=== PATIENT | female | born 2000 | race Caucasian/White ===

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

== ENCOUNTER 2021-06-25 14:41 | Inpatient (IN) | payer MEDICAID, SELFPAY ==
--- NOTE | ~2021-06-25 | CT_ITS ---
EXAMINATION: CT CHEST AND CT ABDOMEN AND PELVIS WITH CONTRAST. CLINICAL INFORMATION: Febrile, tachycardia, SOB. Suprapubic pain. COMPARISON: TECHNIQUE: 5 mm thin axial and reformatted 3 mm thin sagittal and coronal images of chest, abdomen pelvis were obtained following IV however mL Omnipaque 350. DLP 451 FINDINGS: Chest: The lungs are well-expanded and clear of acute pneumonic process. No pulmonary nodules, mass or groundglass density seen. The thyroid lobes are symmetrical and normal. Central trachea and the bronchi widely patent. Heart size and the great vessels are normal. There is residual thymus present in the anterior mediastinum. There is no pleural effusion, thickening or calcification. The axilla and chest wall is unremarkable except for small shotty lymph nodes in the axilla. No osseous abnormality seen involving bony thorax. Abdomen and pelvis: Visualized liver is normal size, contour and density. No focal lesion or intrahepatic ductal dilatation seen. The gallbladder is contracted but unremarkable. Visualized spleen, pancreas and bilateral adrenal glands are unremarkable. The right kidney is hypertrophied with areas of patchy hypodensity suspicious for acute pyelonephritis. The left kidney appears unremarkable. No radiopaque renal calculi seen. 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 The left pelvis and the ureter appears unremarkable. The bladder is distended. There is scattered stool and gas seen in the colon without significant distention. The small bowel loops are normal caliber. The appendix is normal caliber. There is no free air or free fluid. The abdominal wall appears unremarkable. The abdominal aorta is normal caliber. There is no abnormal size retroperitoneal lymph nodes seen. Imaging through the pelvis reveals anteverted uterus. Bone windows reveal no lytic or sclerotic process. CT/CT abdomen pelvis w con IMPRESSION: Unremarkable CT chest exam. Slightly enlarged right kidney with patchy hypodensity of the right kidney. Question pyelonephritis or nephronia. 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 Mild constipation.
[2021-06-25 16:23] VITALS: BP 108/68; PULSE 140; RESP 19; TEMP 39.3; O2SAT 99; BMI 20.9
[2021-06-25] MEDS: Acetaminophen 325 MG TABLET 1000 MG PO (16:30)
--- NOTE | 2021-06-25 16:34 | PC.NURSE ---
after triage is complete pt states also when I pee it smells really bad .
[2021-06-25 16:50] LABS: MANUAL DIFF FLAG NO
[2021-06-25 16:52] LABS: Basophils Percent Auto 0.1 % (0-2); Hematocrit 33.3 % (37.0-47.0); Hemoglobin 10.3 g/dl (12.0-16.0); Imm Gran Abs Auto 0.07 X10*3/uL (0.00-0.03); Imm Gran Pct Auto 0.5 % (0.0-0.4); Lymphocytes Absolute Auto 1.4 X10*3/uL (1.2-4.9); Lymphocytes Percent Auto 9.1 % (20-40); Mean Corpuscular HGB Conc 30.9 g/dl (31.0-35.0); Mean Corpuscular Hemoglobin 24.2 pg (27.0-33.0); Mean Corpuscular Volume 78.2 fL (80.0-98.0); Mean Platelet Volume 9.3 fL (9.4-12.3); Monocytes Absolute Auto 0.9 X10*3/uL (0.1-1.2); Monocytes Percent Auto 5.6 % (2-11); Neutrophils Absolute Auto 13.1 x10*3/uL (2.0-8.3); Neutrophils Percent Auto 84.7 % (45-73); Platelet Count 406 X10*3/uL (160-400); Red Blood Count 4.26 X10*6/uL (4.20-5.50); Red Cell Distribution Width 15.3 % (11.0-16.0); White Blood Count 15.4 X10*3/uL (4.8-10.8)
[2021-06-25 17:03] LABS: Appearance Urine CLEAR; Color Urine YELLOW; Glucose Urine UA NEG (NEG); Leukocyte Esterase Urine 1+ (NEG); Nitrite Urine POS (NEG); UACC Culture Trigger YES; Urine Blood 1+ (NEG); Urine Ketones 5 MG/DL (NEG); Urine Protein NEG (NEG-TRACE)
[2021-06-25 17:06] LABS: Anion Gap 14 (12-20); Blood Urea Nitrogen 7 mg/dL (9-16); Calcium 9.4 mg/dL (8.4-10.2); Carbon Dioxide 24 mmol/L (22-29); Chloride 100 mmol/L (96-108); Creatinine Clr Calc Pharmacy 97.2; Estimated Glomerular Filt Rate > 60; Glucose Random 138 mg/dL (60-115); Potassium 3.9 mmol/L (3.3-5.1); Sodium 134 mmol/L (135-145)
[2021-06-25 17:10] LABS: Bacteria Urine 3+ /LPF; Squamous Epithelial Cell Urine TRACE /LPF
[2021-06-25 17:30] LABS: Influenza A PCR NEGATIVE (Negative); Influenza B PCR NEGATIVE (Negative); Resp Syncy Virus RNA Qual PCR NEGATIVE (Negative); SARS COV2 PCR INHOUSE NEGATIVE (Negative)
[2021-06-25 18:00] LABS: HCG Quantitative < 2 mIU/mL
[2021-06-25 19:13] VITALS: BP 113/59; PULSE 95; RESP 16; O2SAT 100
[2021-06-25] MEDS: cefTRIAXone sodium 1 GM in 0.9 % Sodium Chloride 50 ML IV (19:24)
[2021-06-25] MEDS: Acetaminophen 325 MG TABLET 975 MG PO (19:24)
[2021-06-25] MEDS: 0.9 % Sodium Chloride 1,000 ML 999 ML IV (19:25)
[2021-06-25 19:36] LABS: Lactic Acid 1.2 mmol/L (0.5-2.0)
--- NOTE | 2021-06-25 19:53 | ED.FEVER ---
HPI - Fever General Chief Complaint: Fever Stated Complaint: Fever/Nausea/body aches Time Seen by Provider: 06/25/21 16:28 Source: patient Mode of arrival: ambulatory Limitations: no limitations History of Present Illness HPI Narrative: This is a 20-year-old female no known medical history presenting to the emergency department with complaints of body aches, fatigue, fevers, abdominal pain, headache x2 weeks. Patient tells me that her fever at home has been around 102-103 for the past 2 weeks. She has been taking Tylenol as needed for fevers, with relief. She reports a diffuse headache, without dizziness or vision changes. She tells me it feels like her typical headache. She denies any associated neck pain. She also reports abdominal discomfort in the suprapubic region. This is also been going on for about 2 weeks. She tells me that this all started after she started receiving her control injection. She denies chest pain, shortness of breath, vomiting, nausea, changes in bowel habits, changes in urination, back pain, neck pain, vaginal discharge. No concerns for STDs/STIs. Vaccinated against [employer]OV[employer]ide Biggies x2. No recent sick contacts. MD elicited complaint: fever, malaise and weakness Onset (ago): week(s) (2) Measured temperature: 102 F Exacerbating factors: nothing Relieving factors: nothing Associated symptoms: myalgias, headache and abdominal pain Treatments prior to arrival fever: acetaminophen Related Data Previous Rx's Medication Instructions Recorded ondansetron 4 mg disintegrating 4 mg PO Q8H PRN 4 Days #6 tab 07/31/20 tablet Allergies Allergy/AdvReac Type Severity Reaction Status Date / Time SEAFOOD Allergy Unknown UNKNOWN Uncoded 06/25/21 16:22 Review of Systems Review of Systems: Constitutional : No Weight loss, + Fever, + Chills, No Fatigue, No Malaise ENT/Mouth : No sore throat, No Rhinorrhea Eyes: No Eye Pain, No Swelling, No Redness Cardiovascular : No Chest Pain, No SOB, No Dyspnea on Exertion, No Orthopnea, No Edema, No Palpitations Respiratory : No Cough, No Sputum, No Wheezing Gastrointestinal : No Nausea, No Vomiting, No Diarrhea, No Constipation, + abdominal Pain, No Hematochezia, No Melena Genitourinary : No Dysuria, No Urinary Frequency, No Hematuria, Musculoskeletal : No joint pain, No Myalgias, No Joint Swelling Skin : No Skin Lesions, No rash Neuro : No Weakness, No Numbness, No Dizziness, + Headache Psych : No Anxiety/Panic, No Depression All other systems reviewed and are negative Yes all other systems are reviewed and are negative [facility] Past Medical History Attestation statement: The following information was validated with the patient. Source: old records reviewed and nursing notes reviewed Medical History COVID-19 No known health problems Social History Social History Alcohol intake: never Advance Directives: No Advance Directives Information Provided: No Patient : No Physical Exam Vital Signs: Vital Signs: Last Vital Signs Temp 102.7 F H 06/25/21 16:23 Pulse 95 06/25/21 19:13 Resp 16 06/25/21 19:13 BP 113/59 L 06/25/21 19:13 Pulse Ox 100 06/25/21 19:13 BMI result Body Mass Index 20.9 VSS Appearance: Alert.? Oriented X3.? No acute distress.? Head: Normocephalic, atraumatic, no step-offs or deformities Eyes: Pupils equal, round and reactive to light.? ENT: Pharynx normal.? Neck: Normal inspection.? Neck supple.? CVS: Normal heart rate and rhythm.? Pulses normal.? Respiratory: No respiratory distress.? Breath sounds normal.? Abdomen: Soft and nontender.? Skin: Skin warm and dry.? +pale.? Normal skin turgor.? Extremities: No lower extremity edema.? No calf ttp. 5/5 strength to bilateral upper and lower extremities Back: No midline tenderness, no C-spine tenderness, full range of motion, no CVA tenderness bilaterally Neuro: Oriented X 3.? No motor deficit.? No sensory deficit. CN 2-12 intact Course Reevaluation(s) Reevaluation #1: Patient noted to have a leukocytosis. No acute electrolyte abnormalities. Lactic acid 1. Repeat lactic acid 1.2. Patient is noted to have a beta hCG less than 2. Urine with acute infection. Flu/COVID/RSV negative. CT significant for possible pyelonephritis. Time: 21:53 Reevaluation #2: Patient will be admitted for pyelonephritis. MDM - Fever MDM Narrative Medical decision making narrative: 1839 20-year-old female no known medical history presents with body aches, fatigue and fever x2 weeks progressively worsening. Physical examination significant for right-sided CVA tenderness. Patient has a regular rate and rhythm. Lungs clear. Abdomen soft nontender nondistended. Patient is noted to be tachycardic, with a low blood pressure, and febrile. At this time infection is suspected. Blood cultures, lactic acid have been ordered. Patient will be given fluids and antibiotics. Suspicion for pyelonephritis, UTI. Plan at this time is imaging, urine, labs. Medical Records Attestation: I reviewed the patient's medical records. Lab Data Attestation: I reviewed the patient's lab results. Result diagrams: 06/25/21 16:42 06/25/21 16:42 Labs: Lab Results 06/25/21 06/25/21 06/25/21 Range/Units 16:42 16:42 16:42 WBC 15.4 H (4.8-10.8) X10*3/uL RBC 4.26 (4.20-5.50) X10*6/uL Hgb 10.3 L (12.0-16.0) g/dl Hct 33.3 L (37.0-47.0) % MCV 78.2 L (80.0-98.0) fL MCH 24.2 L (27.0-33.0) pg MCHC 30.9 L (31.0-35.0) g/dl RDW 15.3 (11.0-16.0) % Plt Count 406 H (160-400) X10*3/uL MPV 9.3 L (9.4-12.3) fL Immature Gran % (Auto) 0.5 H (0.0-0.4) % Neut % (Auto) 84.7 H (45-73) % Lymph % (Auto) 9.1 L (20-40) % [place] % (Auto) 5.6 (2-11) % Eos % (Auto) 0.0 (0-4) % Baso % (Auto) 0.1 (0-2) % Lymph # (Auto) 1.4 (1.2-4.9) X10*3/uL [place] # (Auto) 0.9 (0.1-1.2) X10*3/uL Eos # (Auto) 0.0 (0.0-0.4) X10*3/uL Baso # (Auto) 0.0 (0.0-0.2) X10*3/uL Abs Immat Gran (auto) 0.07 H (0.00-0.03) X10*3/uL Absolute Neuts (auto) 13.1 H (2.0-8.3) x10*3/uL Absolute Nucleated RBC 0.000 (0.0-0.012) X10*3/uL Nucleated RBC % (auto) 0.0 (0.0-0.2) /100WBC Sodium 134 L (135-145) mmol/L Potassium 3.9 (3.3-5.1) mmol/L Chloride 100 (96-108) mmol/L Carbon Dioxide 24 (22-29) mmol/L Anion Gap 14 (12-20) BUN 7 L (9-16) mg/dL Creatinine 0.77 (0.5-1.4) mg/dL Estim Creat Clear Calc 97.2 Estimated GFR > 60 Random Glucose 138 H (60-115) mg/dL Lactic Acid 1.0 (0.5-2.0) mmol/L Calcium 9.4 (8.4-10.2) mg/dL Beta HCG, Quant < 2 mIU/mL Urine Color Urine Appearance Urine pH (5.0-8.0) Ur Specific [place] (1.005-1.025) Urine Protein (NEG-TRACE) MG/DL Urine Glucose (UA) (NEG) MG/DL Urine Ketones (NEG) MG/DL Urine Blood (NEG) Urine Nitrite (NEG) Ur Leukocyte Esterase (NEG) Urine RBC (0) /HPF Urine WBC (0-4) /HPF Ur Squamous Epith Cells /LPF Urine Bacteria /LPF Influenza Type A (PCR) (Negative) Influenza Type B (PCR) (Negative) RSV RNA Qual (PCR) (Negative) SARS-CoV-2 RNA (RT-PCR) (Negative) 06/25/21 06/25/21 06/25/21 Range/Units 16:43 16:54 19:14 WBC (4.8-10.8) X10*3/uL RBC (4.20-5.50) X10*6/uL Hgb (12.0-16.0) g/dl Hct (37.0-47.0) % MCV (80.0-98.0) fL MCH (27.0-33.0) pg MCHC (31.0-35.0) g/dl RDW (11.0-16.0) % Plt Count (160-400) X10*3/uL MPV (9.4-12.3) fL Immature Gran % (Auto) (0.0-0.4) % Neut % (Auto) (45-73) % Lymph % (Auto) (20-40) % [place] % (Auto) (2-11) % Eos % (Auto) (0-4) % Baso % (Auto) (0-2) % Lymph # (Auto) (1.2-4.9) X10*3/uL [place] # (Auto) (0.1-1.2) X10*3/uL Eos # (Auto) (0.0-0.4) X10*3/uL Baso # (Auto) (0.0-0.2) X10*3/uL Abs Immat Gran (auto) (0.00-0.03) X10*3/uL Absolute Neuts (auto) (2.0-8.3) x10*3/uL Absolute Nucleated RBC (0.0-0.012) X10*3/uL Nucleated RBC % (auto) (0.0-0.2) /100WBC Sodium (135-145) mmol/L Potassium (3.3-5.1) mmol/L Chloride (96-108) mmol/L Carbon Dioxide (22-29) mmol/L Anion Gap (12-20) BUN (9-16) mg/dL Creatinine (0.5-1.4) mg/dL Estim Creat Clear Calc Estimated GFR Random Glucose (60-115) mg/dL Lactic Acid 1.2 (0.5-2.0) mmol/L Calcium (8.4-10.2) mg/dL Beta HCG, Quant mIU/mL Urine Color YELLOW Urine Appearance CLEAR Urine pH 6.0 (5.0-8.0) Ur Specific [place] 1.010 (1.005-1.025) Urine Protein NEG (NEG-TRACE) MG/DL Urine Glucose (UA) NEG (NEG) MG/DL Urine Ketones 5 (NEG) MG/DL Urine Blood 1+ H (NEG) Urine Nitrite POS H (NEG) Ur Leukocyte Esterase 1+ H (NEG) Urine RBC 1-4 (0) /HPF Urine WBC 5-9 H (0-4) /HPF Ur Squamous Epith Cells TRACE /LPF Urine Bacteria 3+ /LPF Influenza Type A (PCR) NEGATIVE (Negative) Influenza Type B (PCR) NEGATIVE (Negative) RSV RNA Qual (PCR) NEGATIVE (Negative) SARS-CoV-2 RNA (RT-PCR) NEGATIVE (Negative) Critical Care Time Critical Care Time Critical Care Time: No Discharge Plan Discharge Clinical Impression: Pyelonephritis Patient Disposition: Admitted As Inpatient
[2021-06-25] MEDS: iohexoL 350 MG/ML 100 ML INFUS..BTL IV (20:24)
[2021-06-25 21:16] VITALS: TEMP 38.8
--- NOTE | 2021-06-25 22:31 | P.HPHOSP_ITS ---
History of Present Illness Date of Service: 06/25/21 Chief Complaint: abdominal pain 20-year-old female with no significant past medical history presented to the hospital with a chief complaint of abdominal pain. Denies any nausea or vomiting. Reports he has been having fevers and generalized body aches. Also complains of headaches. Mentions the symptoms have been going on for the past 2 weeks. Has been trying to take Tylenol with no significant improvement. Hence presented to the hospital for further evaluation. Denies any chest pain or palpitations. Rib mentions that she has been COVID-19 vaccinated Mentions she is sexually active. But denies any concerns for STDs. Review of all other systems is negative except mentioned above ER course: Per ER team patient on presentation noted to be tachycardic, on labs noted to have leukocytosis; lactate within normal limits; urinalysis abnormal; had CVA tenderness; concern for pyelonephritis. Given ceftriaxone. CT abdomen showed right-sided pyelonephritis days/ nephronia. CT chest showed no acute findings. Admitted for further management. [facility] Medical History COVID-19 No known health problems Pertinent family history: reviewed Social History Alcohol intake: never Advance Directives: No Advance Directives Information Provided: No Patient : No Meds Allergies Allergy/AdvReac Type Severity Reaction Status Date / Time SEAFOOD Allergy Unknown UNKNOWN Uncoded 06/25/21 16:22 Active Medications: Current Medications Ceftriaxone Sodium 1 gm/ (Sodium Chloride) 50 mls @ 100 mls/hr IV Q24H VAISHALI Physical Exam Vital Signs and Narrative: Vital Signs: Last Vital Signs Temp 102.7 F H 06/25/21 16:23 Pulse 95 06/25/21 19:13 Resp 16 06/25/21 19:13 BP 113/59 L 06/25/21 19:13 Pulse Ox 100 06/25/21 19:13 BMI result Body Mass Index 20.9 Gen: Appears be in no acute distress HEENT: NCAT, Moist mucosa. Pulmonary: Vesicular breath sounds, fair air entry CVS: Normal S1-S2 Abdomen: BS+, Soft, right CVA tenderness positive Extremities: Warm well perfused Neuro: Alert and awake. Results Labs CBC and Chem 7: 06/25/21 16:42 06/25/21 16:42 Labs: Laboratory Results - last 24 hr 06/25/21 06/25/21 06/25/21 16:42 16:42 16:42 MCV 78.2 L MCH 24.2 L MCHC 30.9 L RDW 15.3 Plt Count 406 H MPV 9.3 L Immature Gran % (Auto) 0.5 H Neut % (Auto) 84.7 H Lymph % (Auto) 9.1 L [place] % (Auto) 5.6 Eos % (Auto) 0.0 Baso % (Auto) 0.1 Lymph # (Auto) 1.4 [place] # (Auto) 0.9 Eos # (Auto) 0.0 Baso # (Auto) 0.0 Abs Immat Gran (auto) 0.07 H Absolute Neuts (auto) 13.1 H Absolute Nucleated RBC 0.000 Nucleated RBC % (auto) 0.0 Anion Gap 14 Estim Creat Clear Calc 97.2 Estimated GFR > 60 Random Glucose 138 H Lactic Acid 1.0 Calcium 9.4 Beta HCG, Quant < 2 Urine Color Urine Appearance Urine pH Ur Specific [place] Urine Protein Urine Glucose (UA) Urine Ketones Urine Blood Urine Nitrite Ur Leukocyte Esterase Urine RBC Urine WBC Ur Squamous Epith Cells Urine Bacteria Influenza Type A (PCR) Influenza Type B (PCR) RSV RNA Qual (PCR) SARS-CoV-2 RNA (RT-PCR) 06/25/21 06/25/21 06/25/21 16:43 16:54 19:14 MCV MCH MCHC RDW Plt Count MPV Immature Gran % (Auto) Neut % (Auto) Lymph % (Auto) [place] % (Auto) Eos % (Auto) Baso % (Auto) Lymph # (Auto) [place] # (Auto) Eos # (Auto) Baso # (Auto) Abs Immat Gran (auto) Absolute Neuts (auto) Absolute Nucleated RBC Nucleated RBC % (auto) Anion Gap Estim Creat Clear Calc Estimated GFR Random Glucose Lactic Acid 1.2 Calcium Beta HCG, Quant Urine Color YELLOW Urine Appearance CLEAR Urine pH 6.0 Ur Specific [place] 1.010 Urine Protein NEG Urine Glucose (UA) NEG Urine Ketones 5 Urine Blood 1+ H Urine Nitrite POS H Ur Leukocyte Esterase 1+ H Urine RBC 1-4 Urine WBC 5-9 H Ur Squamous Epith Cells TRACE Urine Bacteria 3+ Influenza Type A (PCR) NEGATIVE Influenza Type B (PCR) NEGATIVE RSV RNA Qual (PCR) NEGATIVE SARS-CoV-2 RNA (RT-PCR) NEGATIVE Imaging Radiologist's Impressions: Impressions Abdomen/Pelvis CT 06/25/21 20:38 IMPRESSION: Unremarkable CT chest exam. Slightly enlarged right kidney with patchy hypodensity of the right kidney. Question pyelonephritis or nephronia. 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 Mild constipation. Chest CT 06/25/21 20:38 IMPRESSION: Unremarkable CT chest exam. Slightly enlarged right kidney with patchy hypodensity of the right kidney. Question pyelonephritis or nephronia. 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 Mild constipation. Assessment and Plan (1) Pyelonephritis: Status: Acute Plan 20-year-old female with no significant past medical history presented to abdominal pain, fever, generalized body aches, headaches for 2 wks; noted ot gardiner ve pyelonephritis Sepsis: secondary to Pyelopnephritis. on IV fluids; Lactate wnl. Tachycardia improving with hydration. Pyelonephritis: CT scan also showed findings concerning for nephronia. Continue IV ceftriaxone IV fluids Pain control Will consult ID and Urology for further recommendations DVT prophylaxis: Lovenox Code status: Full code Quality Stroke Does the patient have a stroke diagnosis?: No VTE Prior VTE?: No VTE Risk Level:: Medical - moderate - high VTE Device Contraindication: Treatment Not Indicated VTE Drug Contraindication: N/A - Med Ordered
[2021-06-26 02:37] VITALS: RESP 18
[2021-06-26] MEDS: Enoxaparin Sodium 40 MG/0.4 ML SYRINGE SUBCUT (02:37)
[2021-06-26] MEDS: HYDROmorphone HCl 1 MG/ML SYRINGE 0.5 MG IVPUSH (02:37)
[2021-06-26] MEDS: Melatonin 3 MG TABLET 6 MG PO (02:38)
[2021-06-26] MEDS: 0.9 % Sodium Chloride 1,000 ML 100 ML IVCONT (03:09)
[2021-06-26] MEDS: 0.9 % Sodium Chloride Flush 3 ML SYRINGE IVFLUSH (03:10)
--- NOTE | 2021-06-26 05:00 | PC.NURSE ---
pt alert, respirations easy, n/l. skin w/d. pt denies any complaints and will continue to monitor pt.
[2021-06-26 06:00] VITALS: BP 104/52; PULSE 87; RESP 16; TEMP 37.4; O2SAT 99
[2021-06-26 06:09] LABS: MANUAL DIFF FLAG NO
[2021-06-26 06:11] LABS: Basophils Percent Auto 0.1 % (0-2); Eosinophils Absolute Auto 0.1 X10*3/uL (0.0-0.4); Eosinophils Percent Auto 0.6 % (0-4); Hematocrit 30.2 % (37.0-47.0); Hemoglobin 9.4 g/dl (12.0-16.0); Imm Gran Abs Auto 0.03 X10*3/uL (0.00-0.03); Imm Gran Pct Auto 0.3 % (0.0-0.4); Lymphocytes Absolute Auto 2.1 X10*3/uL (1.2-4.9); Lymphocytes Percent Auto 18.6 % (20-40); Mean Corpuscular HGB Conc 31.1 g/dl (31.0-35.0); Mean Corpuscular Hemoglobin 24.4 pg (27.0-33.0); Mean Corpuscular Volume 78.2 fL (80.0-98.0); Mean Platelet Volume 8.5 fL (9.4-12.3); Monocytes Absolute Auto 1.2 X10*3/uL (0.1-1.2); Monocytes Percent Auto 10.4 % (2-11); Neutrophils Absolute Auto 7.8 x10*3/uL (2.0-8.3); Platelet Count 351 X10*3/uL (160-400); Red Blood Count 3.86 X10*6/uL (4.20-5.50); Red Cell Distribution Width 15.2 % (11.0-16.0); White Blood Count 11.1 X10*3/uL (4.8-10.8)
[2021-06-26 06:30] LABS: Anion Gap 9 (12-20); Blood Urea Nitrogen 6 mg/dL (9-16); Carbon Dioxide 26 mmol/L (22-29); Chloride 107 mmol/L (96-108); Creatinine Clr Calc Pharmacy 101.2; Estimated Glomerular Filt Rate > 60; Glucose Random 99 mg/dL (60-115); Potassium 4.3 mmol/L (3.3-5.1); Sodium 138 mmol/L (135-145)
--- NOTE | 2021-06-26 11:06 | P.DS_ITS ---
DS: Providers Provider Date of Service: 06/26/21 Date of admission: 06/25/21 22:28 Primary care physician: Unknown Physician Consults: 06/25/21 22:28 Consult to Infectious Diseases Routine Consulting Provider: Zohreh Vallejo Reason for consultation: pyelonephritis/nephronia Consult to Urology Routine Consulting Provider: Ismael Braden Reason for consultation: pyelonephritis/nephronia DS: Diagnosis Discharge Diagnosis (1) Pyelonephritis: Status: Acute DS: Summary Hospital Course Hospital Course: ?abdominal pain ?20-year-old female with no significant past medical history presented to the hospital with a chief complaint of abdominal pain.? Denies any nausea or vomiting.? Reports he has been having fevers and generalized body aches.? Also complains of headaches.? Mentions the symptoms have been going on for the past 2 weeks.? Has been trying to take Tylenol with no significant improvement.? Hence presented to the hospital for further evaluation.? Denies any chest pain or palpitations.? Rib mentions that she has been COVID-19 vaccinated Mentions she is sexually active.? But denies any concerns for STDs.? Review of all other systems is negative except mentioned above ER course: Per ER team patient on presentation noted to be tachycardic, on labs noted to have leukocytosis; lactate within normal limits; urinalysis abnormal; had CVA tenderness; concern for pyelonephritis.? Given ceftriaxone.? CT abdomen showed right-sided pyelonephritis days/ nephronia.? CT chest showed no acute findings.? Admitted for further management. Hospital coruse: She presented with abdominal pain, fever of 102, Leukocytosis, +UA and CT finding consitent with right Pyelonephritis, she met sepsis criteria. Management consistent of IV hydation, IV Ceftriaxone and rapidly improved by second day with resolution of fever and WBC down from 15 to 11, tachycardia resolved. Has no nausea or vomitting. Culture so far negative and will be transitioned to oral Ceftin for 10 days. She feels comoftable going home and advised to complete antibiotics coure even if symptoms resoved before completion. Final Diagnosis: Sepsis Acute pyelonephritis. Time Spent with Patient Time attestation: Total time spent providing and/or coordinating discharge services: Discharge coordination time: Greater than 30 minutes Quality: Stroke Does the patient have a stroke diagnosis?: No Physical Exam Vital Signs: Vital Signs: Last Vital Signs Temp 99.4 F 06/26/21 06:00 Pulse 87 06/26/21 06:00 Resp 16 06/26/21 06:00 BP 104/52 L 06/26/21 06:00 Pulse Ox 99 06/26/21 06:00 BMI result Body Mass Index 20.9 Const: Other: General: AO X 3, no acute distress Resp: CTA bilateral CVS: S1,S2,RRR GI: +BS, NT, no distention : no CVA tenderness Skin: No rash Neuro: motor grossly intact Psych: appropriate affect DS: Data Data Completed and Pending Labs on day of discharge: Laboratory Results - last 24 hr 06/25/21 06/25/21 06/25/21 16:42 16:42 16:42 WBC 15.4 H RBC 4.26 Hgb 10.3 L Hct 33.3 L MCV 78.2 L MCH 24.2 L MCHC 30.9 L RDW 15.3 Plt Count 406 H MPV 9.3 L Immature Gran % (Auto) 0.5 H Neut % (Auto) 84.7 H Lymph % (Auto) 9.1 L Wolfe % (Auto) 5.6 Eos % (Auto) 0.0 Baso % (Auto) 0.1 Lymph # (Auto) 1.4 Wolfe # (Auto) 0.9 Eos # (Auto) 0.0 Baso # (Auto) 0.0 Abs Immat Gran (auto) 0.07 H Absolute Neuts (auto) 13.1 H Absolute Nucleated RBC 0.000 Nucleated RBC % (auto) 0.0 Sodium 134 L Potassium 3.9 Chloride 100 Carbon Dioxide 24 Anion Gap 14 BUN 7 L Creatinine 0.77 Estim Creat Clear Calc 97.2 Estimated GFR > 60 Random Glucose 138 H Lactic Acid 1.0 Calcium 9.4 Beta HCG, Quant < 2 Urine Color Urine Appearance Urine pH Ur Specific [place] Urine Protein Urine Glucose (UA) Urine Ketones Urine Blood Urine Nitrite Ur Leukocyte Esterase Urine RBC Urine WBC Ur Squamous Epith Cells Urine Bacteria Influenza Type A (PCR) Influenza Type B (PCR) RSV RNA Qual (PCR) SARS-CoV-2 RNA (RT-PCR) 06/25/21 06/25/21 06/25/21 16:43 16:54 19:14 WBC RBC Hgb Hct MCV MCH MCHC RDW Plt Count MPV Immature Gran % (Auto) Neut % (Auto) Lymph % (Auto) Wol[place] % (Auto) Eos % (Auto) Baso % (Auto) Lymph # (Auto) [place] # (Auto) Eos # (Auto) Baso # (Auto) Abs Immat Gran (auto) Absolute Neuts (auto) Absolute Nucleated RBC Nucleated RBC % (auto) Sodium Potassium Chloride Carbon Dioxide Anion Gap BUN Creatinine Estim Creat Clear Calc Estimated GFR Random Glucose Lactic Acid 1.2 Calcium Beta HCG, Quant Urine Color YELLOW Urine Appearance CLEAR Urine pH 6.0 Ur Specific [place] 1.010 Urine Protein NEG Urine Glucose (UA) NEG Urine Ketones 5 Urine Blood 1+ H Urine Nitrite POS H Ur Leukocyte Esterase 1+ H Urine RBC 1-4 Urine WBC 5-9 H Ur Squamous Epith Cells TRACE Urine Bacteria 3+ Influenza Type A (PCR) NEGATIVE Influenza Type B (PCR) NEGATIVE RSV RNA Qual (PCR) NEGATIVE SARS-CoV-2 RNA (RT-PCR) NEGATIVE 06/26/21 06/26/21 05:58 05:58 WBC 11.1 H RBC 3.86 L Hgb 9.4 L Hct 30.2 L MCV 78.2 L MCH 24.4 L MCHC 31.1 RDW 15.2 Plt Count 351 MPV 8.5 L Immature Gran % (Auto) 0.3 Neut % (Auto) 70.0 Lymph % (Auto) 18.6 L Wolfe % (Auto) 10.4 Eos % (Auto) 0.6 Baso % (Auto) 0.1 Lymph # (Auto) 2.1 [place] # (Auto) 1.2 Eos # (Auto) 0.1 Baso # (Auto) 0.0 Abs Immat Gran (auto) 0.03 Absolute Neuts (auto) 7.8 Absolute Nucleated RBC 0.000 Nucleated RBC % (auto) 0.0 Sodium 138 Potassium 4.3 Chloride 107 Carbon Dioxide 26 Anion Gap 9 L BUN 6 L Creatinine 0.74 Estim Creat Clear Calc 101.2 Estimated GFR > 60 Random Glucose 99 Lactic Acid Calcium 9.0 Beta HCG, Quant Urine Color Urine Appearance Urine pH Ur Specific [place] Urine Protein Urine Glucose (UA) Urine Ketones Urine Blood Urine Nitrite Ur Leukocyte Esterase Urine RBC Urine WBC Ur Squamous Epith Cells Urine Bacteria Influenza Type A (PCR) Influenza Type B (PCR) RSV RNA Qual (PCR) SARS-CoV-2 RNA (RT-PCR) Discharge Plan Discharge Anticipated Discharge Date/Time: 06/26/21 11:02 Patient Disposition: Home, Self-Care Discharge Diagnosis: Acute pyelonephritis Referrals: Physician,Unknown J [Primary Care Provider] - 1 Week Discharge Medications: New cefuroxime axetil 500 mg tablet 500 mg PO BID 10 Days Qty: 20 0RF No Action No Known Home Meds 0RF Discharge Orders: Discharge Order (Routine); Ordered 06/26/21 Ordered By: Too Conde Diet: advance to usual diet Activity on Discharge: As tolerated Stand Alone Forms: Patient Portal Discharge page Care Plan Goals: Full recovery from pyelonephritis Health Concerns: Pyelonephritis Plan of Treatment: Take Ceftin 500mg twice daily for 10 days, drink plenty of fluid and follow up with your Doctor in a week, call for appointment Assessment: as above
== END 2021-06-26 11:50 | disposition home or self-care (01) | DRG 720 ==
LOC: HO.ED 21:50 → HO.EDOVER 22:34
PROVIDERS: Physician Assistant; Admitting Provider Hospitalist; Emergency Provider Emergency Medicine; Visit Provider Internal Medicine
DX: A41.9 Sepsis, unspecified organism (principal); N10 Acute pyelonephritis; Z20.822 Contact with and (suspected) exposure to COVID-19; Z79.899 Other long term (current) drug therapy
CPT/HCPCS: 0241U; 36415; 71260; 74177; 80048; 81001; 81003; 83605; 84702; 85025; 87040; 87086; 87088; 87186; 96365; 99219; 99284; 99285; J0696; J1170; J1650; Q9967

== ENCOUNTER 2022-02-21 09:56 | Inpatient (IN) | payer MEDICAID, SELFPAY ==
--- NOTE | ~2022-02-21 | CT_ITS ---
EXAMINATION: CT ABDOMEN AND PELVIS WITH CONTRAST CLINICAL INFORMATION: 21-year-old with right lower quadrant abdominal pain COMPARISON: 06/25/2021 TECHNIQUE: Multidetector volumetric images were obtained from the superior aspect of the liver through the pubic symphysis following administration 80 mL of Omnipaque 350 intravenous contrast. Sagittal and coronal reformatted images were obtained on the technologist's workstation. Oral contrast: No This CT examination was performed using dose optimization techniques as appropriate, variously including the following: *Automated exposure control *Adjustment of mA and/or kV according to patient size (this includes techniques or standardized protocols for targeted exams where dose is matched to indication/reason for exam; i.e. extremities or head) *Use of iterative reconstruction technique DLP: 370 mGy-cm FINDINGS: LUNG BASES: The visualized lung bases are unremarkable. LIVER, GALLBLADDER, AND BILIARY TREE: The liver is normal in size, shape, and attenuation. No focal hepatic lesion or biliary ductal dilatation is present. The gallbladder is unremarkable with no evidence of radiopaque gallstones, gallbladder wall thickening, or obvious pericholecystic inflammatory changes. PANCREAS: Unremarkable. SPLEEN: Unremarkable. ADRENAL GLANDS: Unremarkable. KIDNEYS AND URETERS: The kidneys are normal in size, shape, and attenuation. No hydronephrosis, hydroureter, or calculi seen. No perinephric stranding. BLADDER: Unremarkable. GASTROINTESTINAL TRACT: The small and large bowel are unremarkable. The appendix is not clearly seen. ABDOMINAL WALL: No significant hernia is appreciated. LYMPH NODES: There are scattered mesenteric lymph nodes stable since previous study VASCULAR: Unremarkable. PELVIC VISCERA: Unremarkable. There is trace of fluid in cul-de-sac, likely physiological. There is prominent endometrial likely related to secretory stage of menstrual cycle., Correlate clinically OSSEOUS STRUCTURES: Unremarkable. 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 Trace of fluid in cul-de-sac. Fleischner guidelines were followed.
[2022-02-21 10:00] VITALS: BP 114/73; PULSE 135; RESP 18; TEMP 36.9; O2SAT 98; BMI 21.2
--- NOTE | 2022-02-21 11:10 | ED_ITS ---
HPI - Nausea/Vomiting/Diarrhea General Chief complaint: Nausea/Vomiting/Diarrhea Stated complaint: vomiting Time Seen by Provider: 02/21/22 10:51 Source: patient Mode of arrival: ambulatory Limitations: no limitations History of Present Illness HPI Narrative: This is a 21 years old of female presented to the emergency department with a chief complaint of nausea and vomiting since this morning MD elicited complaint: nausea and vomiting Onset (ago): hour(s) (8) Description of diarrhea: watery Location of pain: none Quality: cramping Exacerbating factors: none Relieving factors: none Related Data Previous Rx's Medication Instructions Recorded cefuroxime axetil 500 mg tablet 500 mg PO BID 10 days #20 tabs 06/26/21 Allergies Allergy/AdvReac Type Severity Reaction Status Date / Time SEAFOOD Allergy Unknown UNKNOWN Uncoded 06/25/21 16:22 Review of Systems Constitutional: Constitutional: Reports no additional constitutional complaints ENT: Reports system reviewed and no additional complaints, except as document ed Cardiovascular: Cardiovascular: Reports no additional cardiovascular complaints Respiratory: Respiratory: Reports no additional respiratory complaints [facility] Past Medical History [facility] Narrative: UTI Medical History COVID-19 No known health problems Social History Social History Alcohol intake: never Patient Tobacco Use Status: Never used Tobacco Advance Directives: No Advance Directives Information Provided: No Patient : No Physical Exam Vital Signs: Vital Signs: Last Vital Signs Temp 98.5 F 02/21/22 10:00 Pulse 122 H 02/21/22 15:31 Resp 18 02/21/22 15:31 BP 115/64 02/21/22 15:31 Pulse Ox 100 02/21/22 15:31 O2 Del Method 02/21/22 15:31 BMI result Body Mass Index 21.2 Const: General: cooperative and anxious Nutritional Appearance: average body habitus Orientation/consciousness: patient oriented x3 Limitations: no limitations HEENT: Head: Yes normal to inspection Face and sinus: Yes normal facial exam Mouth: Normal oral and palatal mucosa present Throat: Yes posterior oropharynx normal Neck: Neck: Yes normal visual inspection Chest: Chest palpation & inspection: normal inspection of the chest Resp: Effort & Inspection: normal respiratory effort Auscultation: clear to auscultation bilaterally Cardio: Jugular venous distension: no JVD Rate: regular rate Rhythm: regular rhythm GI: Inspection: Yes normal to inspection Palpation (GI): Soft to palpation, not firm, nontender and no guarding Auscultation: normal bowel sounds Skin: General skin exam: no rashes or lesions noted, elasticity normal and turgor normal Rashes: no rashes Neuro: General: patient oriented x3 Course Reevaluation(s) Reevaluation #1: patient is completely asymptomatic now she states she has no nausea she is tolerating p.o. well, she has no abdominal pain. Electrolytes are within normal limit, she has a leukocytosis but white count is been elevated in the past as well. A CT scan of the abdomen and pelvis was essentially normal the appendix 1 no visualized but there is no inflammation the right lower quadrant. patient has a persistent tachycardia around 120 after 3 L of fluids. She is not ready to be discharged given abnormal vital signs the tachycardia of 120. I think it is reasonable to admit her for observation of IV fluids I discussed this with Dr. Conde Time: 15:44 [facility] - Nausea/Vomiting/Diarrhea Lab Data Result diagrams: 02/21/22 12:56 02/21/22 12:56 Labs: Lab Results 02/21/22 02/21/22 02/21/22 Range/Units 12:56 12:56 13:07 WBC 16.1 H (4.8-10.8) X10*3/uL RBC 4.61 (4.20-5.50) X10*6/uL Hgb 10.9 L (12.0-16.0) g/dl Hct 35.9 L (37.0-47.0) % MCV 77.9 L (80.0-98.0) fL MCH 23.6 L (27.0-33.0) pg MCHC 30.4 L (31.0-35.0) g/dl RDW 15.1 (11.0-16.0) % Plt Count 378 (160-400) X10*3/uL MPV 8.4 L (9.4-12.3) fL Immature Gran % (Auto) 0.5 H (0.0-0.4) % Neut % (Auto) 96.2 H (45-73) % Lymph % (Auto) 1.4 L (20-40) % [place] % (Auto) 1.8 L (2-11) % Eos % (Auto) 0.0 (0-4) % Baso % (Auto) 0.1 (0-2) % Lymph # (Auto) 0.2 L (1.2-4.9) X10*3/uL [place] # (Auto) 0.3 (0.1-1.2) X10*3/uL Eos # (Auto) 0.0 (0.0-0.4) X10*3/uL Baso # (Auto) 0.0 (0.0-0.2) X10*3/uL Abs Immat Gran (auto) 0.08 H (0.00-0.03) X10*3/uL Absolute Neuts (auto) 15.5 H (2.0-8.3) x10*3/uL Absolute Nucleated RBC 0.000 (0.0-0.012) X10*3/uL Nucleated RBC % (auto) 0.0 (0.0-0.2) /100WBC Smear Tech's Comments VERIFIED Sodium 139 (135-145) mmol/L Potassium 4.1 (3.3-5.1) mmol/L Chloride 105 (96-108) mmol/L Carbon Dioxide 23 (22-29) mmol/L Anion Gap 15 (12-20) BUN 13 D (9-16) mg/dL Creatinine 0.66 (0.5-1.4) mg/dL Estim Creat Clear Calc 112.5 Estimated GFR > 60 Random Glucose 106 (60-115) mg/dL Calcium 9.0 (8.4-10.2) mg/dL Total Bilirubin 0.7 (0.0-1.0) mg/dL AST 16 (5-31) U/L ALT 11 (0-31) U/L Alkaline Phosphatase 96 (39-117) U/L Total Protein 7.3 (6.5-8.0) g/dL Albumin 4.3 (3.5-5.0) g/dL Beta HCG, Quant < 2 mIU/mL Urine Color Cancelled Urine Appearance Cancelled Urine pH Cancelled Ur Specific [place] Cancelled Urine Protein Cancelled Urine Glucose (UA) Cancelled Urine Ketones Cancelled Urine Blood Cancelled Urine Nitrite Cancelled Ur Leukocyte Esterase Cancelled Urine RBC Cancelled Urine WBC Cancelled Urine WBC Clumps Cancelled Ur Squamous Epith Cells Cancelled Ur Transition Epith Cell Cancelled Ur Renal Epithelial Cell Cancelled Calcium Oxalate Crystal Cancelled Leucine Crystals Cancelled Cystine Crystals Cancelled Tyrosine Crystals Cancelled Other Crystals Cancelled Urine Bacteria Cancelled Urine Parasites Cancelled Bilirubin Casts Cancelled Epithelial Casts Cancelled Fatty Casts Cancelled Hyaline Casts Cancelled Granular Casts Cancelled Waxy Casts Cancelled Broad Casts Cancelled RBC Casts Cancelled WBC Casts Cancelled Other Casts Cancelled Urine Trichomonas Cancelled Urine Yeast Cancelled 02/21/22 Range/Units 13:07 WBC (4.8-10.8) X10*3/uL RBC (4.20-5.50) X10*6/uL Hgb (12.0-16.0) g/dl Hct (37.0-47.0) % MCV (80.0-98.0) fL MCH (27.0-33.0) pg MCHC (31.0-35.0) g/dl RDW (11.0-16.0) % Plt Count (160-400) X10*3/uL MPV (9.4-12.3) fL Immature Gran % (Auto) (0.0-0.4) % Neut % (Auto) (45-73) % Lymph % (Auto) (20-40) % [place] % (Auto) (2-11) % Eos % (Auto) (0-4) % Baso % (Auto) (0-2) % Lymph # (Auto) (1.2-4.9) X10*3/uL [place] # (Auto) (0.1-1.2) X10*3/uL Eos # (Auto) (0.0-0.4) X10*3/uL Baso # (Auto) (0.0-0.2) X10*3/uL Abs Immat Gran (auto) (0.00-0.03) X10*3/uL Absolute Neuts (auto) (2.0-8.3) x10*3/uL Absolute Nucleated RBC (0.0-0.012) X10*3/uL Nucleated RBC % (auto) (0.0-0.2) /100WBC Smear Tech's Comments Sodium (135-145) mmol/L Potassium (3.3-5.1) mmol/L Chloride (96-108) mmol/L Carbon Dioxide (22-29) mmol/L Anion Gap (12-20) BUN (9-16) mg/dL Creatinine (0.5-1.4) mg/dL Estim Creat Clear Calc Estimated GFR Random Glucose (60-115) mg/dL Calcium (8.4-10.2) mg/dL Total Bilirubin (0.0-1.0) mg/dL AST (5-31) U/L ALT (0-31) U/L Alkaline Phosphatase (39-117) U/L Total Protein (6.5-8.0) g/dL Albumin (3.5-5.0) g/dL Beta HCG, Quant mIU/mL Urine Color Cancelled Urine Appearance Cancelled Urine pH Cancelled Ur Specific [place] Cancelled Urine Protein Cancelled Urine Glucose (UA) Cancelled Urine Ketones Cancelled Urine Blood Cancelled Urine Nitrite Cancelled Ur Leukocyte Esterase Cancelled Urine RBC Cancelled Urine WBC Cancelled Urine WBC Clumps Cancelled Ur Squamous Epith Cells Cancelled Ur Transition Epith Cell Cancelled Ur Renal Epithelial Cell Cancelled Calcium Oxalate Crystal Cancelled Leucine Crystals Cancelled Cystine Crystals Cancelled Tyrosine Crystals Cancelled Other Crystals Cancelled Urine Bacteria Cancelled Urine Parasites Cancelled Bilirubin Casts Cancelled Epithelial Casts Cancelled Fatty Casts Cancelled Hyaline Casts Cancelled Granular Casts Cancelled Waxy Casts Cancelled Broad Casts Cancelled RBC Casts Cancelled WBC Casts Cancelled Other Casts Cancelled Urine Trichomonas Cancelled Urine Yeast Cancelled Imaging Data CT scan - abdomen: Radiologist's impression: on. There is a moderate to large volume of stool in the colon. Large collection of stool in the rectum/sigmoid. Mild thickening of the distal rectum/sigmoid bowel wall. No significant edema though the surrounding presacral fat to suggest a stercoral colitis. The appendix is nonvisualized . The small bowel loops are unremarkable. The stomach is normal. There is no hiatal hernia.? ABDOMINAL WALL: No significant hernia is appreciated.? LYMPH NODES: Normal. VASCULAR: Vascular calcifications throughout the abdomen and pelvis. No aneurysm of aorta. PELVIC VISCERA: Status post hysterectomy. No pelvic mass or inflammation.? OSSEOUS STRUCTURES: Multilevel degenerative spondylosis spine.? CT/CT abdomen pelvis wo IV con IMPRESSION: 1.? No acute abnormality the abdomen or pelvis. 2.? Status post cholecystectomy. Chronic dilatation of the extrahepatic CBD. 3.? Diverticulosis of colon. No acute change of the bowel. Large volume of stool in the rectum/sigmoid with mild thickening of the distal rectum/sigmoid bowel wall but no significant edema in the surrounding presacral fat to suggest a stercoral colitis. 4.? Status post hysterectomy. 5.? Status post median sternotomy. Status post TAVR. ? Fleischner guidelines were f Discharge Plan Discharge Clinical Impression: Vomiting, Dehydration Patient Disposition: Admitted As Inpatient
[2022-02-21] MEDS: 0.9 % Sodium Chloride 1,000 ML 999 ML IVCONT ×3 (11:17→15:30)
[2022-02-21] MEDS: ondansetron HCL 4 MG/2 ML VIAL IVPUSH ×2 (11:17→23:27)
[2022-02-21 13:02] LABS: Basophils Percent Auto 0.1 % (0-2); Hematocrit 35.9 % (37.0-47.0); Hemoglobin 10.9 g/dl (12.0-16.0); Imm Gran Abs Auto 0.08 X10*3/uL (0.00-0.03); Imm Gran Pct Auto 0.5 % (0.0-0.4); Lymphocytes Absolute Auto 0.2 X10*3/uL (1.2-4.9); Lymphocytes Percent Auto 1.4 % (20-40); MANUAL DIFF FLAG SCAN; Mean Corpuscular HGB Conc 30.4 g/dl (31.0-35.0); Mean Corpuscular Hemoglobin 23.6 pg (27.0-33.0); Mean Corpuscular Volume 77.9 fL (80.0-98.0); Mean Platelet Volume 8.4 fL (9.4-12.3); Monocytes Absolute Auto 0.3 X10*3/uL (0.1-1.2); Monocytes Percent Auto 1.8 % (2-11); Neutrophils Absolute Auto 15.5 x10*3/uL (2.0-8.3); Neutrophils Percent Auto 96.2 % (45-73); Platelet Count 378 X10*3/uL (160-400); Red Blood Count 4.61 X10*6/uL (4.20-5.50); Red Cell Distribution Width 15.1 % (11.0-16.0); SCAN SMEAR FLAG 1; White Blood Count 16.1 X10*3/uL (4.8-10.8)
[2022-02-21 13:17] LABS: Alanine Aminotransferase 11 U/L (0-31); Albumin Level 4.3 g/dL (3.5-5.0); Alkaline Phosphatase 96 U/L (39-117); Anion Gap 15 (12-20); Aspartate Amino Transferase 16 U/L (5-31); Bilirubin Total 0.7 mg/dL (0.0-1.0); Blood Urea Nitrogen 13 mg/dL (9-16); Carbon Dioxide 23 mmol/L (22-29); Chloride 105 mmol/L (96-108); Creatinine Clr Calc Pharmacy 112.5; Estimated Glomerular Filt Rate > 60; Glucose Random 106 mg/dL (60-115); Potassium 4.1 mmol/L (3.3-5.1); Sodium 139 mmol/L (135-145); Total Protein 7.3 g/dL (6.5-8.0)
[2022-02-21 13:18] LABS: Appearance Urine Clear; Color Urine Yellow; Glucose Urine UA Negative (Negative); Leukocyte Esterase Urine Negative (Negative); Nitrite Urine Positive (Negative); Specific Gravity - Urine 1.015 (1.005-1.025); UMIC TRIGGER UACC YES; Urine Blood Negative (Negative); Urine Ketones Trace mg/dL (Negative); Urine Protein Negative (Neg-Trace)
[2022-02-21 13:23] LABS: Bacteria Urine 3+ (None Seen); Hyaline Casts Urine 0-2 /LPF (0-2); RBC Urine 0-2 /HPF (0-2); Squamous Epithelial Cell Urine 0-2 /HPF (0-2); UACC Culture Trigger YES
[2022-02-21 13:23] LABS: HCG Quantitative < 2 mIU/mL
[2022-02-21 13:40] LABS: SLIDE REVIEW VERIFIED
[2022-02-21] MEDS: iohexoL 350 MG/ML 100 ML INFUS..BTL IV (13:55)
[2022-02-21 15:31] VITALS: BP 115/64; PULSE 122; RESP 18; O2SAT 100
[2022-02-21] MEDS: Acetaminophen 325 MG TABLET 650 MG PO (16:03)
--- NOTE | 2022-02-21 16:33 | P.HPHOSP_ITS ---
History of Present Illness Date of Service: 02/21/22 Chief Complaint: 21 year old female with nausea/V 21 year old female with no chornic illnesses who presents with nausea and vomitting since this morning with no associated abdominal pain and not able to keep anything down. She is noted to be tachycardic with HR ranges from 120s to 130, normal BP. There is WBC of 16. CT of abdomen is described as [employer] scattered lymph nodes throughout the mesentery of nonpathological size. Trace of fluid in cul-de-sac . negative. On further questioning she tells me she has some burning on urination with strong order and subjective fever. She denies use of marijuana. Requesting UA, and drug screen. She has been given 3 Liters of fluid. Review of Systems Review of Systems: Gen: subjective fever Resp: no sob, no cough CV: no chest, no HOOK, no leg edema GI: No +n/v, no abd pain Neuro: No confusion Yes all other systems are reviewed and are negative [facility] Medical History COVID-19 No known health problems Pertinent family history: no dm Social History Household Members: Significant Other Housing: Apartment Do you presently have visiting nurse or other home services: No Alcohol intake: never Patient Tobacco Use Status: Never used Tobacco Use of substances other than those prescribed or required for medical reasons: No Currently Displaying Signs/Symptoms of Drug Intoxication Withdrawal: No Have you been hit, kicked, punched, or otherwise hurt by someone within the past year? If so, by whom?: No Do you feel safe in your current relationship?: Yes Is there a partner from a previous relationship who is making you feel unsafe now?: No Are you made to feel afraid or neglected: No Advance Directives: No Advance Directives Information Provided: No Do you have thoughts of harming others: None Do you have a plan to hurt others: No Plan Recently lost weight without trying: No Nutrition Risks: No Nutritional Risk Patient : No : No Poor oral hygiene: No Meds Allergies Allergy/AdvReac Type Severity Reaction Status Date / Time SEAFOOD Allergy Unknown UNKNOWN Uncoded 06/25/21 16:22 Home Medications Medication Instructions Recorded Confirmed Last Taken Type acetaminophen 325 mg tablet 650 mg PO Q4H PRN Pain 02/21/22 02/21/22 Unknown History Physical Exam Vital Signs and Narrative: Vital Signs: Last Vital Signs Temp 98.5 F 02/21/22 10:00 Pulse 122 H 02/21/22 15:31 Resp 18 02/21/22 15:31 BP 115/64 02/21/22 15:31 Pulse Ox 100 02/21/22 15:31 O2 Del Method 02/21/22 15:31 BMI result Body Mass Index 21.2 Const: Other: Constitutional: Alert, in no distress Mental Status: Oriented to person, place and time. Eyes: Pupils are equal, round and reactive to light. Ear, Nose and Throat: Oropharynx clear, mucous membranes moist. Ears and nose without eformities. e. Respiratory: Clear to auscultation. No wheezing, rales or rhonchi. Cardiovascular: S1 S2 regular. No murmurs, rubs or gallops. Gastrointestinal: Abdomen soft, non-tender, non-distended. Normal bowel sounds.? No flank tenderness Neurologic: Cranial nerves II-XII grossly intact. No focal neurological deficits. Moves all extremities spontaneously.? Skin: No rashes or lesions.? Musculoskeletal: No cyanosis or clubbing. Psychiatric: Normal mood and affect? Results Labs CBC and Chem 7: 02/22/22 05:45 02/21/22 12:56 Labs: Laboratory Results - last 24 hr 02/21/22 02/21/22 02/21/22 12:56 12:56 13:07 MCV 77.9 L MCH 23.6 L MCHC 30.4 L RDW 15.1 Plt Count 378 MPV 8.4 L Immature Gran % (Auto) 0.5 H Neut % (Auto) 96.2 H Lymph % (Auto) 1.4 L [place] % (Auto) 1.8 L Eos % (Auto) 0.0 Baso % (Auto) 0.1 Lymph # (Auto) 0.2 L [place] # (Auto) 0.3 Eos # (Auto) 0.0 Baso # (Auto) 0.0 Abs Immat Gran (auto) 0.08 H Absolute Neuts (auto) 15.5 H Absolute Nucleated RBC 0.000 Nucleated RBC % (auto) 0.0 Smear Tech's Comments VERIFIED Anion Gap 15 Estim Creat Clear Calc 112.5 Estimated GFR > 60 Random Glucose 106 Calcium 9.0 Total Bilirubin 0.7 AST 16 ALT 11 Alkaline Phosphatase 96 Total Protein 7.3 Albumin 4.3 Beta HCG, Quant < 2 Urine Color Cancelled Urine Appearance Cancelled Urine pH Cancelled Ur Specific [place] Cancelled Urine Protein Cancelled Urine Glucose (UA) Cancelled Urine Ketones Cancelled Urine Blood Cancelled Urine Nitrite Cancelled Ur Leukocyte Esterase Cancelled Urine RBC Cancelled Urine WBC Cancelled Urine WBC Clumps Cancelled Ur Squamous Epith Cells Cancelled Ur Transition Epith Cell Cancelled Ur Renal Epithelial Cell Cancelled Calcium Oxalate Crystal Cancelled Leucine Crystals Cancelled Cystine Crystals Cancelled Tyrosine Crystals Cancelled Other Crystals Cancelled Urine Bacteria Cancelled Urine Parasites Cancelled Bilirubin Casts Cancelled Epithelial Casts Cancelled Fatty Casts Cancelled Hyaline Casts Cancelled Granular Casts Cancelled Waxy Casts Cancelled Broad Casts Cancelled RBC Casts Cancelled WBC Casts Cancelled Other Casts Cancelled Urine Trichomonas Cancelled Urine Yeast Cancelled 02/21/22 13:07 MCV MCH MCHC RDW Plt Count MPV Immature Gran % (Auto) Neut % (Auto) Lymph % (Auto) [place] % (Auto) Eos % (Auto) Baso % (Auto) Lymph # (Auto) [place] # (Auto) Eos # (Auto) Baso # (Auto) Abs Immat Gran (auto) Absolute Neuts (auto) Absolute Nucleated RBC Nucleated RBC % (auto) Smear Tech's Comments Anion Gap Estim Creat Clear Calc Estimated GFR Random Glucose Calcium Total Bilirubin AST ALT Alkaline Phosphatase Total Protein Albumin Beta HCG, Quant Urine Color Cancelled Urine Appearance Cancelled Urine pH Cancelled Ur Specific [place] Cancelled Urine Protein Cancelled Urine Glucose (UA) Cancelled Urine Ketones Cancelled Urine Blood Cancelled Urine Nitrite Cancelled Ur Leukocyte Esterase Cancelled Urine RBC Cancelled Urine WBC Cancelled Urine WBC Clumps Cancelled Ur Squamous Epith Cells Cancelled Ur Transition Epith Cell Cancelled Ur Renal Epithelial Cell Cancelled Calcium Oxalate Crystal Cancelled Leucine Crystals Cancelled Cystine Crystals Cancelled Tyrosine Crystals Cancelled Other Crystals Cancelled Urine Bacteria Cancelled Urine Parasites Cancelled Bilirubin Casts Cancelled Epithelial Casts Cancelled Fatty Casts Cancelled Hyaline Casts Cancelled Granular Casts Cancelled Waxy Casts Cancelled Broad Casts Cancelled RBC Casts Cancelled WBC Casts Cancelled Other Casts Cancelled Urine Trichomonas Cancelled Urine Yeast Cancelled Imaging Radiologist's Impressions: Impressions Abdomen/Pelvis CT 02/21/22 13:56 IMPRESSION: [employer] scattered lymph nodes throughout the mesentery of nonpathological size. Trace of fluid in cul-de-sac. Fleischner guidelines were followed. Assessment and Plan (1) Vomiting: Status: Acute (2) Dehydration: Status: Acute (3) Tachycardia: Status: Acute Plan 21/ with n/v, tachycardia N/V--unclear etiology, check UA, tox scree, Lipase, IV hydration Tachycardia--likely from dehydration--hydrate and reassess, SIRS (tachcyardia+Leukocytosis)--likely related to above Leukocytosis--likely reactive, recheck tomorrow low risk for DVT, likely home tomorrow Quality Stroke Does the patient have a stroke diagnosis?: No VTE Prior VTE?: No VTE Risk Level:: Medical - low VTE Device Contraindication: Treatment Not Indicated VTE Drug Contraindication: Treatment Not Indicated
[2022-02-21 16:59] LABS: Lipase 21 U/L (8-78)
--- NOTE | 2022-02-21 17:29 | PHA.MEDREC ---
Pharmacy Consult ? Medication Reconciliation Pharmacy has completed the medication reconciliation. Patient reports only taking tylenol as needed. Janelle Almaraz, PhilD
[2022-02-21 18:00] VITALS: BP 93/46; PULSE 110; RESP 20; TEMP 38; O2SAT 98
[2022-02-21] MEDS: Dextrose 5 % and 0.45 % NaCl 1,000 ML 100 ML IVCONT (18:52)
[2022-02-21 21:11] LABS: COVID-19 Test Negative (Negative); IDNOW Serial# 55D5AD1C
--- NOTE | 2022-02-21 21:59 | PC.NURSE ---
Attempted to call report at [phone]. Was told they will call back in approx 5 minutes.
[2022-02-21 23:19] VITALS: BP 107/64; PULSE 95; RESP 18; TEMP 36.8; O2SAT 100
[2022-02-21] MEDS: Melatonin 3 MG TABLET 6 MG PO (23:27)
[2022-02-21 23:58] VITALS: BP 107/64; PULSE 95; RESP 18; TEMP 36.8; O2SAT 100
[2022-02-22 00:13] LABS: Appearance Urine Clear; Color Urine Yellow; Glucose Urine UA Negative (Negative); Leukocyte Esterase Urine Moderate (2+) (Negative); Nitrite Urine Positive (Negative); UMIC TRIGGER UA YES; Urine Blood Negative (Negative); Urine Ketones Negative (Negative); Urine Protein Negative (Neg-Trace)
[2022-02-22 00:15] LABS: Bacteria Urine 4+ (None Seen); Hyaline Casts Urine 0-2 /LPF (0-2); RBC Urine 0-2 /HPF (0-2); Squamous Epithelial Cell Urine 0-2 /HPF (0-2); WBC Urine 21-50 /HPF (0-5)
[2022-02-22 00:21] LABS: Amphetamine Screen Urine Not Detected (Not Detect); Barbiturates, Urine Not Detected (Not Detect); Benzodiazepines Screen Urine Not Detected (Not Detect); Cannabinoid Screen Urine Not Detected (Not Detect); Cocaine Screen Urine Not Detected (Not Detect); Fentanyl, urine Not Detected (Not Detect); Opiate Screen Urine Not Detected (Not Detect); Phencyclidine Screen Urine Not Detected (Not Detect)
[2022-02-22] MEDS: Dextrose 5 % and 0.45 % NaCl 1,000 ML 100 ML IVCONT (02:36)
[2022-02-22 03:36] VITALS: BP 98/59; PULSE 87; RESP 18; TEMP 36.4; O2SAT 98
[2022-02-22 06:28] LABS: MANUAL DIFF FLAG NO
[2022-02-22 06:30] LABS: Basophils Percent Auto 0.1 % (0-2); Eosinophils Percent Auto 0.4 % (0-4); Hematocrit 32.7 % (37.0-47.0); Hemoglobin 10.1 g/dl (12.0-16.0); Imm Gran Abs Auto 0.03 X10*3/uL (0.00-0.03); Imm Gran Pct Auto 0.4 % (0.0-0.4); Lymphocytes Absolute Auto 0.7 X10*3/uL (1.2-4.9); Lymphocytes Percent Auto 10.3 % (20-40); Mean Corpuscular HGB Conc 30.9 g/dl (31.0-35.0); Mean Corpuscular Hemoglobin 23.9 pg (27.0-33.0); Mean Corpuscular Volume 77.3 fL (80.0-98.0); Mean Platelet Volume 9.2 fL (9.4-12.3); Monocytes Absolute Auto 0.4 X10*3/uL (0.1-1.2); Monocytes Percent Auto 5.7 % (2-11); Neutrophils Absolute Auto 5.7 x10*3/uL (2.0-8.3); Neutrophils Percent Auto 83.1 % (45-73); Platelet Count 338 X10*3/uL (160-400); Red Blood Count 4.23 X10*6/uL (4.20-5.50); Red Cell Distribution Width 15.3 % (11.0-16.0); White Blood Count 6.9 X10*3/uL (4.8-10.8)
[2022-02-22 08:00] VITALS: BP 117/68; PULSE 96; RESP 18; TEMP 36.2; O2SAT 99
--- NOTE | 2022-02-22 08:13 | P.DS_ITS ---
DS: Providers Provider Date of Service: 02/22/22 Date of admission: 02/21/22 16:47 Primary care physician: [facility] DS: Diagnosis Discharge Diagnosis (1) Vomiting: Status: Acute (2) Dehydration: Status: Acute (3) Tachycardia: Status: Acute DS: Summary Hospital Course Hospital Course: Chief Complaint: 21 year old female with nausea/V 21 year old female with no chornic illnesses who presents with nausea and vomitting since this morning with no associated abdominal pain and not able to keep anything down.? She is noted to be tachycardic with HR ranges from 120s to 130, normal BP. There is WBC of 16. 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 Trace of fluid in cul-de-sac . negative.? On further questioning she tells me she has some burning on urination with strong order and subjective fever. She denies use of marijuana. Requesting UA, and drug screen. She has been given 3 Li ters of fluid. Hospital course: She presented with the nausea vomitting, leukocytois, urinary symptoms and found to have UTI--CT show no evidence of acute pyelonephritis, Given IV ceftriaxone in the hospital and will discharge with oral Ceftin for 5 more days., Leukocytosis has resolved. Nausea and vomitting resolved and she istolerating regular diet amd happy to go home. Time Spent with Patient Time attestation: Total time spent providing and/or coordinating discharge services: Discharge coordination time: Greater than 30 minutes Quality: Safe Use of Opioids Does Pt have an Active Cancer Diagnosis on the Problem List?: No Quality: Stroke Does the patient have a stroke diagnosis?: No Physical Exam Vital Signs: Vital Signs: Last Vital Signs Temp 97.5 F 02/22/22 03:36 Pulse 87 02/22/22 03:36 Resp 18 02/22/22 03:36 BP 98/59 L 02/22/22 03:36 Pulse Ox 98 02/22/22 03:36 O2 Del Method 02/22/22 03:36 BMI result Body Mass Index 21.2 Const: Other: General: AO X 3, no acute distress Resp: CTA bilateral CVS: S1,S2,RRR GI: +BS, NT, no distention, no flank tenderness Skin: No rash Neuro: motor grossly intact Psych: appropriate affect DS: Data Data Completed and Pending Labs on day of discharge: Laboratory Results - last 24 hr 02/21/22 02/21/22 02/21/22 12:56 12:56 13:07 WBC 16.1 H RBC 4.61 Hgb 10.9 L Hct 35.9 L MCV 77.9 L MCH 23.6 L MCHC 30.4 L RDW 15.1 Plt Count 378 MPV 8.4 L Immature Gran % (Auto) 0.5 H Neut % (Auto) 96.2 H Lymph % (Auto) 1.4 L Patrick % (Auto) 1.8 L Eos % (Auto) 0.0 Baso % (Auto) 0.1 Lymph # (Auto) 0.2 L Patrick # (Auto) 0.3 Eos # (Auto) 0.0 Baso # (Auto) 0.0 Abs Immat Gran (auto) 0.08 H Absolute Neuts (auto) 15.5 H Absolute Nucleated RBC 0.000 Nucleated RBC % (auto) 0.0 Smear Tech's Comments VERIFIED Sodium 139 Potassium 4.1 Chloride 105 Carbon Dioxide 23 Anion Gap 15 BUN 13 D Creatinine 0.66 Estim Creat Clear Calc 112.5 Estimated GFR > 60 Random Glucose 106 Calcium 9.0 Total Bilirubin 0.7 AST 16 ALT 11 Alkaline Phosphatase 96 Total Protein 7.3 Albumin 4.3 Lipase 21 Beta HCG, Quant < 2 Urine Color Cancelled Urine Appearance Cancelled Urine pH Cancelled Ur Specific [place] Cancelled Urine Protein Cancelled Urine Glucose (UA) Cancelled Urine Ketones Cancelled Urine Blood Cancelled Urine Nitrite Cancelled Ur Leukocyte Esterase Cancelled Urine RBC Cancelled Urine WBC Cancelled Urine WBC Clumps Cancelled Ur Squamous Epith Cells Cancelled Ur Transition Epith Cell Cancelled Ur Renal Epithelial Cell Cancelled Calcium Oxalate Crystal Cancelled Leucine Crystals Cancelled Cystine Crystals Cancelled Tyrosine Crystals Cancelled Other Crystals Cancelled Urine Bacteria Cancelled Urine Parasites Cancelled Bilirubin Casts Cancelled Epithelial Casts Cancelled Fatty Casts Cancelled Hyaline Casts Cancelled Granular Casts Cancelled Waxy Casts Cancelled Broad Casts Cancelled RBC Casts Cancelled WBC Casts Cancelled Other Casts Cancelled Urine Trichomonas Cancelled Urine Yeast Cancelled Urine Opiates Screen Urine Fentanyl Screen Ur Barbiturates Screen Ur Phencyclidine Scrn Ur Amphetamines Screen U Benzodiazepines Scrn Urine Cocaine Screen U Marijuana (THC) Screen COVID-19 ([facility]INCE) COVID-19 Clin Com 02/21/22 02/21/22 02/21/22 13:07 20:53 23:30 WBC RBC Hgb Hct MCV MCH MCHC RDW Plt Count MPV Immature Gran % (Auto) Neut % (Auto) Lymph % (Auto) [place] % (Auto) Eos % (Auto) Baso % (Auto) Lymph # (Auto) [place] # (Auto) Eos # (Auto) Baso # (Auto) Abs Immat Gran (auto) Absolute Neuts (auto) Absolute Nucleated RBC Nucleated RBC % (auto) Smear Tech's Comments Sodium Potassium Chloride Carbon Dioxide Anion Gap BUN Creatinine Estim Creat Clear Calc Estimated GFR Random Glucose Calcium Total Bilirubin AST ALT Alkaline Phosphatase Total Protein Albumin Lipase Beta HCG, Quant Urine Color Cancelled Urine Appearance Cancelled Urine pH Cancelled Ur Specific [place] Cancelled Urine Protein Cancelled Urine Glucose (UA) Cancelled Urine Ketones Cancelled Urine Blood Cancelled Urine Nitrite Cancelled Ur Leukocyte Esterase Cancelled Urine RBC Cancelled Urine WBC Cancelled Urine WBC Clumps Cancelled Ur Squamous Epith Cells Cancelled Ur Transition Epith Cell Cancelled Ur Renal Epithelial Cell Cancelled Calcium Oxalate Crystal Cancelled Leucine Crystals Cancelled Cystine Crystals Cancelled Tyrosine Crystals Cancelled Other Crystals Cancelled Urine Bacteria Cancelled Urine Parasites Cancelled Bilirubin Casts Cancelled Epithelial Casts Cancelled Fatty Casts Cancelled Hyaline Casts Cancelled Granular Casts Cancelled Waxy Casts Cancelled Broad Casts Cancelled RBC Casts Cancelled WBC Casts Cancelled Other Casts Cancelled Urine Trichomonas Cancelled Urine Yeast Cancelled Urine Opiates Screen Not Detected Urine Fentanyl Screen Not Detected Ur Barbiturates Screen Not Detected Ur Phencyclidine Scrn Not Detected Ur Amphetamines Screen Not Detected U Benzodiazepines Scrn Not Detected Urine Cocaine Screen Not Detected U Marijuana (THC) Screen Not Detected COVID-19 (VINCE) Negative COVID-19 Clin Com See Note 02/21/22 02/22/22 23:30 05:45 WBC 6.9 RBC 4.23 Hgb 10.1 L Hct 32.7 L MCV 77.3 L MCH 23.9 L MCHC 30.9 L RDW 15.3 Plt Count 338 MPV 9.2 L Immature Gran % (Auto) 0.4 Neut % (Auto) 83.1 H Lymph % (Auto) 10.3 L [place] % (Auto) 5.7 Eos % (Auto) 0.4 Baso % (Auto) 0.1 Lymph # (Auto) 0.7 L [place] # (Auto) 0.4 Eos # (Auto) 0.0 Baso # (Auto) 0.0 Abs Immat Gran (auto) 0.03 Absolute Neuts (auto) 5.7 Absolute Nucleated RBC 0.000 Nucleated RBC % (auto) 0.0 Smear Tech's Comments Sodium Potassium Chloride Carbon Dioxide Anion Gap BUN Creatinine Estim Creat Clear Calc Estimated GFR Random Glucose Calcium Total Bilirubin AST ALT Alkaline Phosphatase Total Protein Albumin Lipase Beta HCG, Quant Urine Color Yellow Urine Appearance Clear Urine pH 6.0 Ur Specific [place] 1.010 Urine Protein Negative Urine Glucose (UA) Negative Urine Ketones Negative Urine Blood Negative Urine Nitrite Positive H Ur Leukocyte Esterase Moderate (2+) H Urine RBC 0-2 Urine WBC 21-50 H Urine WBC Clumps Ur Squamous Epith Cells 0-2 Ur Transition Epith Cell Ur Renal Epithelial Cell Calcium Oxalate Crystal Leucine Crystals Cystine Crystals Tyrosine Crystals Other Crystals Urine Bacteria 4+ Urine Parasites Bilirubin Casts Epithelial Casts Fatty Casts Hyaline Casts 0-2 Granular Casts Waxy Casts Broad Casts RBC Casts WBC Casts Other Casts Urine Trichomonas Urine Yeast Urine Opiates Screen Urine Fentanyl Screen Ur Barbiturates Screen Ur Phencyclidine Scrn Ur Amphetamines Screen U Benzodiazepines Scrn Urine Cocaine Screen U Marijuana (THC) Screen COVID-19 ([facility]INCE) COVID-19 Clin Com Discharge Plan Discharge Anticipated Discharge Date/Time: 02/22/22 08:13 Patient Disposition: Home Health Service Discharge Diagnosis: UTI Referrals: [facility] [Primary Care Provider] - 1 Week Discharge Medications: New cefuroxime axetil 250 mg tablet 250 mg PO BID 5 Days Qty: 10 0RF Continued acetaminophen 325 mg Tablet 650 mg PO Q4H PRN (Reason: Pain) Discharge Orders: Discharge Order (Routine); Ordered 02/22/22 Ordered By: Too Conde Diet: Advance to usual diet Activity on Discharge: As tolerated Stand Alone Forms: Patient Portal Discharge page Care Plan Goals: Full recovery from UTI Health Concerns: UTI Plan of Treatment: Take Ceftin 250 mg twice daily (next dose tomorrow morning) Follow up with your doctor in a week Assessment: as above
[2022-02-22] MEDS: cefTRIAXone sodium 1 GM in 0.9 % Sodium Chloride 50 ML IV (08:49)
[2022-02-22 09:01] LABS: Hematocrit 30.6 % (37.0-47.0); Hemoglobin 9.5 g/dl (12.0-16.0); Mean Corpuscular Hemoglobin 23.9 pg (27.0-33.0); Mean Corpuscular Volume 77.1 fL (80.0-98.0); Platelet Count 311 X10*3/uL (160-400); Red Blood Count 3.97 X10*6/uL (4.20-5.50); Red Cell Distribution Width 15.1 % (11.0-16.0)
== END 2022-02-22 12:21 | disposition home or self-care (01) | DRG 463 ==
LOC: HO.ED 16:17 → HO.EDOVER 16:54 → HO.S3 21:52
PROVIDERS: Physician Assistant Medical; Admitting Provider Internal Medicine; Emergency Provider Emergency Medicine; Visit Provider Internal Medicine
DX: N39.0 Urinary tract infection, site not specified (principal); D72.829 Elevated white blood cell count, unspecified; E86.0 Dehydration; R00.0 Tachycardia, unspecified; Z20.822 Contact with and (suspected) exposure to COVID-19; Z91.013 Allergy to seafood
CPT/HCPCS: 36415; 74177; 80053; 80307; 81001; 81003; 83690; 84702; 85025; 85027; 87086; 87088; 87186; 87635; 99285; J0696; J2405; Q9967

== ENCOUNTER 2022-08-02 15:49 | Emergency (ER) | payer MEDICAID, SELFPAY ==
--- NOTE | ~2022-08-02 | XR_ITS ---
EXAMINATION: XR KNEE, LEFT CLINICAL INFORMATION: Knee swelling post fall COMPARISON: None available. TECHNIQUE: Two views of the left knee. FINDINGS: Bones and soft tissues are normal. No definite fracture. Moderate joint effusion. Alignment is anatomic. Joint spaces are well maintained. No abnormal soft tissue calcification. XR/XR knee LT 2V IMPRESSION: Moderate joint effusion.
[2022-08-02 16:22] VITALS: BP 109/61; PULSE 79; RESP 18; TEMP 37.4; O2SAT 100; BMI 20.5
--- NOTE | 2022-08-02 20:04 | ED_ITS ---
HPI - General Adult General Chief complaint: Extremity Injury, Lower Stated complaint: left knee injury Time Seen by Provider: 08/02/22 19:46 Source: patient, RN notes reviewed and old records reviewed Mode of arrival: ambulatory Limitations: no limitations History of Present Illness HPI narrative: One 3-year-old female presents for evaluation of left knee pain. Patient reports that she was dancing approximately 20 hours ago. She stay her left foot stayed planted on the ground by her body turned causing her to twist her left knee She reports significant swelling to the area Patient felt as though her left kneecap ?dislocated and then relocated and a straight my leg. ? She is unable to bear weight on the left lower extremity Related Data Home Medications Medication Instructions Recorded Confirmed acetaminophen 325 mg tablet 650 mg PO Q4H PRN Pain 02/21/22 02/21/22 Previous Rx's Medication Instructions Recorded cefuroxime axetil 250 mg tablet 250 mg PO BID 5 days #10 tabs 02/22/22 Allergies Allergy/AdvReac Type Severity Reaction Status Date / Time SEAFOOD Allergy Unknown UNKNOWN Uncoded 08/02/22 16:22 Review of Systems Constitutional: Constitutional: Reports as per HPI, Denies chills, Denies fatigue, Denies fever(s) and Denies headache(s) ENT: Denies headache(s) Cardiovascular: Cardiovascular: Denies chest pain and Denies dyspnea Respiratory: Respiratory: Denies cough and Denies dyspnea Neurologic: Denies headache(s) and Denies focal weakness Endocrine: Endocrine: Denies fatigue PMFSH Past Medical History Medical History COVID-19 No known health problems Social History Social History Household Members: Significant Other Housing: Apartment Do you presently have visiting nurse or other home services: No Alcohol intake: never Patient Tobacco Use Status: Never used Tobacco Advance Directives: No Advance Directives Information Provided: No Physical Exam ED Vital Signs: Vital Signs - 24 hr 08/02/22 16:22 Temperature 99.3 F Pulse Rate 79 Respiratory Rate 18 Blood Pressure 109/61 Pulse Oximetry 100 Oxygen Delivery Method Room Air BMI result Body Mass Index 20.5 Const General: healthy appearing, comfortable, no acute distress, alert and awake Nutritional Appearance: well nourished Orientation/consciousness: patient oriented x3 [facility] Head: Yes normocephalic and Yes atraumatic Throat: Yes posterior oropharynx normal Eyes Eyelids: Yes eyelids normal Conjunctivae: conjunctivae normal Sclerae: sclerae normal Corneas: corneas normal Pupils: Equal, round and reactive pupils present EOM: EOMs intact bilaterally Neck Neck: Yes full ROM Resp Effort & Inspection: normal respiratory effort, able to speak in complete sentences, no audible wheezes and not labored Auscultation: clear to auscultation bilaterally Cardio Rate: regular rate Rhythm: regular rhythm Skin General skin exam: no rashes or lesions noted and elasticity normal Neuro General: patient oriented x3 Cranial nerves: Yes CN's II-XII intact bilaterally, Yes Equal, round and reactive pupils present and Yes Bilaterally intact EOM present Cognition (Neuro): normal cognition Extrem Other: Patient has a large left knee joint effusion on exam. She is able to flex to about 130?. She is able to left lower extremity off the bed and extend the knee without support. Patellar tendon is difficult to palpate secondary to edema. Patella appears midline. Medical Decision Making Medical Decision Making [facility] Narrative: They a large left joint effusion on exam. She reports twisting injury. X-ray showed no osseous abnormalities. The patient likely has a ligamentous injury. It is also possible as she dislocated and relocated her left patella. Will put the patient in a knee immobilizer, give her crutches and her follow-up with orth opedics. Differential Diagnosis Knee sprain Knee pain Joint effusion Fracture Dislocation Independent Interpretation I performed an independent interpretation of an: Plain X-Ray (No osseous abnormalities to the left knee) Discharge Plan Discharge Clinical Impression: Acute pain of left knee Patient Disposition: Home, Self-Care Instructions: Knee Pain (ED) Additional Instructions: Your x-ray does not show any abnormalities with the bones of your left knee. It is possible that you have a ligamentous injury such as an ACL or MCL injury Keep the knee immobilizer in place for now Follow-up with orthopedics number provide You may use ibuprofen 600 mg every 6 hours Elevate your leg above your heart while resting Ice the area every 4 hours for the next few days Prescriptions: No Action acetaminophen 325 mg Tablet 650 mg PO Q4H PRN (Reason: Pain) cefuroxime axetil 250 mg tablet 250 mg PO BID 5 Days Qty: 10 0RF Referrals: Siddharth Nelson MD [Physician] - (?left knee ACL injury)
[2022-08-02] MEDS: Ibuprofen 600 MG TABLET PO (20:14)
--- NOTE | 2022-08-02 20:19 | PC.NURSE ---
crutch training provided and knee immobilizer placed on left knee- well tolerated by pt- IBU 600 given for 8/10 knee pain
== END 2022-08-02 20:20 | disposition home or self-care (01) ==
PROVIDERS: Emergency Provider Internal Medicine
DX: M25.562 Pain in left knee (principal); M25.462 Effusion, left knee
CPT/HCPCS: 73560; 99283

== ENCOUNTER → 2022-08-12 13:35 | Outpatient (BNVA) | payer MEDICAID, SELFPAY | PROVIDERS: Visit Provider Physician Assistant | DX: S83.207A Unspecified tear of unspecified meniscus, current injury, left knee, initial encounter (principal); S83.512A Sprain of anterior cruciate ligament of left knee, initial encounter | CPT/HCPCS: 20610; 99202 ==

== ENCOUNTER 2022-08-13 07:38 | Outpatient (REF) | payer MEDICAID, SELFPAY | END 2022-08-13 07:39 | disposition home or self-care (01) | LOC: HO.HOSX 07:38 | PROVIDERS: Visit Provider Physician Assistant | DX: Z13.89 Encounter for screening for other disorder (principal) ==

== ENCOUNTER 2022-09-08 13:25 | Outpatient (REF) | payer MEDICAID, SELFPAY ==
--- NOTE | ~2022-09-08 | MR_ITS ---
EXAMINATION: MR KNEE WITHOUT CONTRAST, LEFT CLINICAL INFORMATION: Recent fall one month ago. Evaluate for a meniscal tear. COMPARISON: None available. TECHNIQUE: MRI of the knee without contrast was performed using routine sequences on a high-field scanner. FINDINGS: MENISCI: Medial Meniscus: Intact Lateral Meniscus: Intact LIGAMENTS: Cruciate: Intact Collateral: Intact EXTENSOR MECHANISM: Intact quadriceps and patellar tendons. No patella cruz. Elevated TT-TG distance measuring 1.8 cm. Mild edema adjacent to the medial patellofemoral ligament consistent with a grade 1 sprain/partial tear. Patella currently well seated within the trochlea. ARTICULAR CARTILAGE/BONE: Patellofemoral Compartment: Prominent marrow edema throughout the inferior aspect of the patella without an associated fracture line. Intact articular cartilage. Medial Compartment: Intact articular cartilage. Marrow edema along the medial aspect of the medial femoral condyle consistent with an osseous contusion. No fracture line. Lateral Compartment: Intact articular cartilage. Focal subchondral low-T1/low-T2 signal along the anterolateral aspect the lateral femoral condyle measuring up to 1.3 cm increasing caudal dimension with prominent adjacent marrow edema, consistent with a nondisplaced impaction fracture. JOINT FLUID AND BURSAE: Moderate joint effusion. MR/MR knee LT wo con IMPRESSION: 1. Findings consistent with a recent lateral patellar dislocation including a nondisplaced impaction fracture along the anterolateral aspect of the lateral femoral condyle as well as a grade 1 sprain/partial tear of the medial patellofemoral ligament. Patella currently well seated within the trochlea. Elevated TT-TG distance. 2. Prominent marrow edema throughout the inferior aspect of the patella as well as the medial aspect of the medial femoral condyle consistent with osseous contusions. No associated fracture line or articular cartilage defect. Moderate joint effusion. 3. No meniscal or ligamentous injury.
== END 2022-09-08 13:26 | disposition home or self-care (01) ==
LOC: HO.MRI 13:25
PROVIDERS: Visit Provider Physician Assistant
DX: S83.512A Sprain of anterior cruciate ligament of left knee, initial encounter (principal); S83.207A Unspecified tear of unspecified meniscus, current injury, left knee, initial encounter
CPT/HCPCS: 73721

== ENCOUNTER 2022-09-15 07:15 | Emergency (ER) | payer MEDICAID, SELFPAY ==
[2022-09-15 07:24] VITALS: BP 125/75; PULSE 84; RESP 16; TEMP 36.6; O2SAT 100; BMI 22.7
[2022-09-15 07:53] LABS: Appearance Urine Clear; Color Urine Yellow; Glucose Urine UA Negative (Negative); Leukocyte Esterase Urine Moderate (2+) (Negative); Nitrite Urine Negative (Negative); Specific Gravity - Urine 1.015 (1.005-1.025); UMIC TRIGGER UACC YES; Urine Blood Negative (Negative); Urine Ketones Negative (Negative); Urine Protein 30 (1+) mg/dL (Neg-Trace)
--- NOTE | 2022-09-15 07:53 | ED_ITS ---
HPI - Female Genitourinary General Chief complaint: Urogenital-Female Stated complaint: Back pain/Pain when urinating/Fever Time Seen by Provider: 09/15/22 07:35 Source: patient Mode of arrival: ambulatory Limitations: no limitations History of Present Illness HPI Narrative: Patient is a 22-year-old female with history of pyelonephritits presenting with 2-3 days of low back pain, occasional dysuria, foul-smelling urine, and subjective fever. She denies any gross hematuria. She denies any abdominal pain, flank pain, nausea, vomiting, diarrhea. She denies any recent intercourse, denies concern for STIs. MD elicited complaint: dysuria Pertinent past history: pyelonephritis Onset (ago): day(s) Location of symptoms: urethra Severity: moderate Female Urogenital Radiation: Non-Radiating Vaginal discharge: none Vaginal bleeding: none Urinary symptoms: Dysuria and Foul Smelling Urine Exacerbating factors: none Relieving factors: none Associated symptoms: fever (subjective) Related Data Home Medications Medication Instructions Recorded Confirmed acetaminophen 325 mg tablet 650 mg PO Q4H PRN Pain 02/21/22 02/21/22 Previous Rx's Medication Instructions Recorded cefuroxime axetil 250 mg tablet 250 mg PO BID 5 days #10 tabs 02/22/22 nitrofurantoin 100 mg PO BID #10 caps 09/15/22 monohydrate/macrocrystals 100 mg capsule (Macrobid) Allergies Allergy/AdvReac Type Severity Reaction Status Date / Time SEAFOOD Allergy Unknown UNKNOWN Uncoded 08/02/22 16:22 Review of Systems Review of Systems: As per HPI. Yes all other systems are reviewed and are negative Constitutional: Constitutional: Reports as per HPI [facility] Past Medical History Medical History COVID-19 No known health problems Social History Social History Household Members: Significant Other Housing: Apartment Do you presently have visiting nurse or other home services: No Alcohol intake: current Alcohol intake frequency: holidays/special occasions only Patient Tobacco Use Status: Never used Tobacco Smoked in Last 30 Days: No Use of substances other than those prescribed or required for medical reasons: No Advance Directives: No Advance Directives Information Provided: Yes Patient : No Physical Exam Vital Signs: Vital Signs: Last Vital Signs Temp 97.9 F 09/15/22 07:24 Pulse 84 09/15/22 07:24 Resp 16 09/15/22 07:24 BP 125/75 09/15/22 07:24 Pulse Ox 100 09/15/22 07:24 O2 Del Method Room Air 09/15/22 07:24 BMI result Body Mass Index 22.7 Vital signs have been reviewed and appear to be correct. Blood pressure normal. Heart rate normal. Respiratory rate normal. Temperature normal. Oxygen saturation normal. Const: General: cooperative, healthy appearing and no acute distress Orientation/consciousness: oriented to person, oriented to place, oriented to time and patient oriented x3 Limitations: no limitations HEENT: Head: Yes normocephalic and Yes atraumatic Ears: external ears normal General nose exam: Normal external nose present Face and sinus: Yes face symmetric Mouth: oropharynx normal and moist mucous membranes Throat: Yes uvula midline Eyes: Pupils: Equal, round and reactive pupils present Neck: Neck: Yes normal visual inspection and Yes supple Resp: Effort & Inspection: normal respiratory effort and able to speak in co mplete sentences Auscultation: clear to auscultation bilaterally Cardio: Rate: regular rate Rhythm: regular rhythm Heart sounds: S1 normal heart sound present and S2 normal heart sound present GI: Palpation (GI): Soft to palpation and nontender Auscultation: normoactive bowel sounds : General: Yes no CVA tenderness Back/Spine/Pelvis: Back: no CVA tenderness Skin: General skin exam: elasticity normal and turgor normal Neuro: General: oriented to person, oriented to place, oriented to time, patient oriented x3, moves all extremities, no focal motor deficits and CN's II- XI intact bilaterally Cranial nerves: Yes Equal, round and reactive pupils present Cognition (Neuro): normal cognition Extrem: General: Yes full ROM, Yes no pedal edema and Yes no calf tenderness Psych: Mental Status: mental status grossly normal Affect: normal affect Thought process: Normal thought process present Medical Decision Making Medical Decision Making MDM Narrative: Patient is a 22-year-old female with history of pyelonephritits presenting with 2-3 days of low back pain, occasional dysuria, foul-smelling urine, and subjective fever. On exam patient is awake, A+Ox3, nontoxic appearing, VS WNL, abdomen soft, nontender, no CVA tenderness. Concern for UTI, pyelonephritis, STI. Less likely renal colic/infected stone as no CVA tenderness. Urine HCG negative. No indication for imaging or labs at this time. 08:54 Urine positve for 2+ leukocytes, 1+ protein, trace bacteria. Feel patient is stable for discharge home. Will treat for UTI with macrobid and follow up if urine culture results indicate change in abx is necessary. CT NG urine sent, will contact patient with any positive results. Return precautions discussed at bedside and patient instructed to follow up with her PCP this week. Differential Diagnosis Differential Diagnoses: The differential diagnosis associated with the presentation includes As above. Admission/Observation Consideration of admission/observation: Escalation of care including admission/observation considered Lab Data MDM Lab Attestation statement: I reviewed the patient's lab results. Labs: Lab Results 09/15/22 09/15/22 Range/Units 07:34 07:34 Urine Color Yellow Urine Appearance Clear Urine pH 6.0 (5.0-9.0) Ur Specific [place] 1.015 (1.005-1.025) Urine Protein 30 (1+) H (Neg-Trace) mg/dL Urine Glucose (UA) Negative (Negative) mg/dL Urine Ketones Negative (Negative) mg/dL Urine Blood Negative (Negative) Urine Nitrite Negative (Negative) Ur Leukocyte Esterase Moderate (2+) H (Negative) Urine RBC 0-2 (0-2) /HPF Urine WBC 21-50 H (0-5) /HPF Ur Squamous Epith Cells 3-5 (0-2) /HPF Urine Bacteria Trace (None Seen) Hyaline Casts 0-2 (0-2) /LPF Urine Test NEGATIVE (NEGATIVE) External Record Review External record reviewed: Inpatient record, Office record and Outpatient record Prescription Management I considered prescription management with: Antibiotic (Macrobid) Discharge Plan Discharge Clinical Impression: Urinary tract infection Patient Disposition: Home, Self-Care Instructions: Urinary Tract Infection in Women (DC) Additional Instructions: You have been evaluated in the emergency department today for your urinary symptoms. Your evaluation, including urinalysis, suggests that your symptoms are due to urinary tract infection. Please take your prescribed antibiotics for the full course of medication as directed. Please follow-up with your primary care provider within 2 days. Return to the emergency department if you experience fevers 100.4? F or greater, worsening or uncontrolled pain, vomiting, flank pain, or for any other concerning symptoms. Prescriptions: New nitrofurantoin monohyd/m-cryst [Macrobid] 100 mg capsule 100 mg PO BID Qty: 10 0RF Rx Instructions: must administer with a meal/food No Action acetaminophen 325 mg Tablet 650 mg PO Q4H PRN (Reason: Pain) cefuroxime axetil 250 mg tablet 250 mg PO BID 5 Days Qty: 10 0RF
[2022-09-15 07:56] LABS: UPreg QC Valid YES; Urine Pregnancy NEGATIVE (NEGATIVE)
[2022-09-15 07:58] LABS: Bacteria Urine Trace (None Seen); Hyaline Casts Urine 0-2 /LPF (0-2); RBC Urine 0-2 /HPF (0-2); UACC Culture Trigger YES; WBC Urine 21-50 /HPF (0-5)
[2022-09-15 09:12] VITALS: BP 110/80; PULSE 72; TEMP 36.7; O2SAT 100
[2022-09-15 10:45] LABS: CT PCR NOT DETECTED (Not Detect.); NG PCR NOT DETECTED (Not Detect.)
== END 2022-09-15 09:30 | disposition home or self-care (01) ==
PROVIDERS: Emergency Provider Emergency Medicine Emergency Medical Services
DX: N39.0 Urinary tract infection, site not specified (principal); M54.50 Low back pain, unspecified; R30.9 Painful micturition, unspecified; R50.9 Fever, unspecified
CPT/HCPCS: 0353U; 81001; 81025; 87086; 87088; 87186; 99283; 99284

== ENCOUNTER → 2022-09-29 10:28 | Outpatient (BNVA) | payer MEDICAID, SELFPAY | PROVIDERS: Visit Provider Physician Assistant | DX: S83.207A Unspecified tear of unspecified meniscus, current injury, left knee, initial encounter (principal); S83.512A Sprain of anterior cruciate ligament of left knee, initial encounter | CPT/HCPCS: 99212 ==

== ENCOUNTER 2023-07-24 16:54 | Emergency (ER) | payer OTHER, SELFPAY ==
--- NOTE | ~2023-07-24 | US_ITS ---
EXAMINATION: US OBSTETRICAL ULTRASOUND CLINICAL INFORMATION: Vaginal bleeding. . Question miscarriage. COMPARISON: None available. LMP: Early June. Gestational age by maternal dates is none. Estimated date of delivery by maternal dates is none. TECHNIQUE: Routine transabdominal imaging of pelvis is performed. FINDINGS: The uterus is midline measuring 6.3 cm in craniocaudad length, 4.7 cm in height and 5.7 seen in transverse dimension.. The cervix is closed measuring 2.8 cm. The endometrium is heterogeneous and thickened measuring 2 cm. No intrauterine gestational sac seen. There is echogenic debris seen within the endometrial canal likely blood clots. Right ovary measures 2.5 x 0.9 x 0.8 cm and appears unremarkable. Left ovary measures 2.6 x 1.7 x 2.3 cm with a corpus luteal cyst measuring 1.5 x 0.9 x 1.2 cm. In the left adnexa there is solid echogenic area inseparable from the left ovary in spite of external pressure. A question of ectopic is raised. It measures 1.8 x 0.9 x 1.4 cm. There is small amount of clear of mild fluid in the cul-de-sac in the left adnexa. US/US OB pelvic and transvaginal IMPRESSION: No intrauterine gestational sac or pole seen. There is a solid area abutting the left ovary question ectopic. There is a small amount of clear fluid in left adnexa and cul-de-sac. A small corpus luteal cyst is seen in left ovary. The endometrium is heterogeneous and thickened with echogenic material within, question clot.
[2023-07-24 17:28] VITALS: BP 118/59; PULSE 117; RESP 18; TEMP 37.4; O2SAT 100; BMI 24.0
--- NOTE | 2023-07-24 17:30 | ED.GENADULT ---
HPI - General Adult General Chief complaint: Vaginal Bleeding Stated complaint: vaginal bleeding cramping Time Seen by Provider: 07/24/23 18:19 Source: patient Mode of arrival: ambulatory Limitations: no limitations History of Present Illness HPI narrative: Patient is a 22 year old assigned female at with no reported medical history presenting to the emergency department today with vaginal bleeding. Patient states that she had her menstrual cycle earlier this month but over the last few days she has begun bleeding heavily again. Patient denies any dizziness, lightheadedness, abdominal pain, nausea, vomiting, fever, chills, blurry vision, double vision, loss of vision, chest pain, difficulty breathing, shortness of breath, back pain, night sweats, pain with urination, increased urinary frequency, increased urinary urgency, blood in her urine or stool, syncope or a near syncopal episode, recent trauma or falls, bowel incontinence, bladder incontinence, bowel retention, bladder retention, or any other complaints at this time. Relieving factors: none Exacerbating factors: none Associated symptoms: denies other symptoms Treatments prior to arrival: none Related Data Home Medications Medication Instructions Recorded Confirmed acetaminophen 325 mg tablet 650 mg PO Q4H PRN Pain 02/21/22 02/21/22 Previous Rx's Medication Instructions Recorded cefuroxime axetil 250 mg tablet 250 mg PO BID 5 days #10 tabs 02/22/22 nitrofurantoin 100 mg PO BID #10 caps 09/15/22 monohydrate/macrocrystals 100 mg capsule (Macrobid) Allergies Allergy/AdvReac Type Severity Reaction Status Date / Time SEAFOOD Allergy Unknown UNKNOWN Uncoded 09/29/22 10:35 Review of Systems Constitutional: Constitutional: Reports no additional constitutional complaints, Denies chills, Denies fever(s) and Denies night sweats Eyes: Eyes: Reports no additional eye complaints, Denies blurry vision, Denies change in vision, Denies diplopia, Denies eye discharge, Denies loss of vision and Denies eye pain ENT: Denies dizziness Cardiovascular: Cardiovascular: Reports no additional cardiovascular complaints, Denies chest pain, Denies lightheadedness, Denies Loss of Consciousness and Denies dyspnea Respiratory: Respiratory: Reports no additional respiratory complaints and Denies dyspnea Gastrointestinal: Gastrointestinal: Reports no additional gastrointestinal complaints, Denies abdominal pain, Denies melena, Denies hematochezia, Denies change in bowel habits and Denies change in stool character Genitourinary: Genitourinary: Denies hematuria, Denies urinary frequency, Denies dysuria, Denies urinary incontinence, Denies urinary hesitancy and Denies urinary urgency Comments: vaginal bleeding Musculoskeletal: Musculoskeletal: Reports no additional musculoskeletal complaints, Denies numbness and Denies tingling Neurologic: Denies dizziness, Denies loss of vision, Denies numbness and Denies tingling Psychiatric: Psychiatric: Reports no additional psychiatric complaints Endocrine: Endocrine: Reports no additional endocrine complaints Hematologic/Lymphatic: Hematologic/Lymphatic: Reports no additional hematologic/lymphatic complaints Allergic/Immunologic: Allergic/Immunologic: Reports no additional allergic/immunologic complaints COUNTS INCLUDE 234 BEDS AT THE [facility] Past Medical History Attestation statement: The following information was validated with the patient. Source: old records reviewed and nursing notes reviewed Medical History COVID-19 No known health problems Social History Social History Household Members: Significant Other Housing: Apartment Do you presently have visiting nurse or other home services: No Alcohol intake: current Alcohol intake frequency: holidays/special occasions only Patient Tobacco Use Status: Never used Tobacco Physical Exam ED Vital Signs: Vital Signs - 24 hr 07/24/23 17:28 07/24/23 23:33 Temperature 99.4 F 99.0 F Pulse Rate 117 H 100 Respiratory Rate 18 14 Blood Pressure 118/59 L 120/68 Pulse Oximetry 100 100 Oxygen Delivery Method Room Air Room Air BMI result Body Mass Index 24.0 Const General: cooperative, no acute distress, alert and awake Nutritional Appearance: well nourished Orientation/consciousness: patient oriented x3 Limitations: no limitations [facility] Head: Yes normal to inspection and Yes atraumatic Ears: hearing grossly normal bilaterally and external ears normal General nose exam: Normal external nose present, no nasal discharge noted and no epistaxis Face and sinus: Yes normal facial exam, No abrasion and No laceration Mouth: Normal oral and palatal mucosa present, no drooling and no muffled voice Eyes General: appearance normal, both eyes and all related structures Periorbital: periorbital findings normal Eyelids: Yes eyelids normal Conjunctivae: conjunctivae normal Pupils: Equal, round and reactive pupils present EOM: EOMs intact bilaterally Neck Neck: Yes normal visual inspection, Yes full ROM and Yes no lymphadenopathy Chest Chest palpation & inspection: normal inspection of the chest Resp Effort & Inspection: normal respiratory effort and able to speak in complete sentences GI Inspection: Yes normal to inspection Neuro General: patient oriented x3 and moves all extremities Cranial nerves: Yes Equal, round and reactive pupils present Cognition (Neuro): normal cognition Motor exam (neuro): 5/5 motor strength present throughout Sensory Exam: Normal double simultaneous stimulation for sensation Coordination: [id number] test normal Extrem General: Yes normal to inspection, Yes full ROM and Yes capillary refill normal Psych Appearance: grossly normal Mental Status: mental status grossly normal Affect: normal affect Attitude: cooperative Thought process: Normal thought process present Thought content: Normal thought content present Insight: Good insight present (Psych) Course Course Course Narrative: Patient complains of vaginal bleeding which was heavy yesterday and has decreased today and yesterday she did have pain in her lower abdomen which has resolved, not dizzy or weak Her normal menstruation happened a week ago Labs are ordered This is rapid medical exam done in triage pending full evaluation and dispo by ER provider Medical Decision Making Medical Decision Making MDM Narrative: Patient is a 22 year old assigned female at with no reported medical history presenting to the emergency department today with vaginal bleeding. Patient's physical exam was unremarkable. Patient's vaginal exam was deferred to the OBGYN. Patient's blood work showed an elevated HCG of 7911. Patient's urine showed a possible UTI however, it was heavily contaminated. Will await culture before beginning treatment. Patient's pelvic/transvaginal US showed concern for an ectopic . I spoke to Dr. Segal who stated he would come in to evaluate the patient. Dr. Segal performed an exam and pulled some tissue from the patient's cervix and discussed different treatment options with her, including methotrexate. Patient opted to return tomorrow 07/25/2023 for a repeat HCG level and re-evaluation. I explained my physical exam findings as well as all test results to the patient. I answered all questions asked by the patient. I stressed the importance of the patient taking her medication as prescribed. I stressed the importance of the patient following up with her primary care provider, returning on 07/25/2023 for a repeat HCG, and following up with an OBGYN. I stressed the importance of the patient returning to the emergency department immediately if her symptoms were to worsen or if she were to develop any dizziness, shortness of breath, difficulty breathing, chest pain, blurry vision, loss of vision, nausea, vomiting, abdominal pain, fever, chills, back pain, or any other complaints. Patient verbalized agreement and understanding with this treatment plan and discharge. Differential Diagnosis Differential Diagnoses: The differential diagnosis associated with the presentation includes Abdominal pain Ectopic Incomplete Admission/Observation Consideration of admission/observation: Escalation of care including admission/observation considered Patient would have been admitted to the hospital had her work up had any findings where hospital admission was appropriate and her clinical presentation warranted hospital admission. Consult Healthcare Provider Management of the patient was discussed with: Supervisor Painting (spoke to Dr. Segal, the OBGYN, as noted in the MDM Rationale portion of this note) Lab Data [facility] Lab Attestation statement: I reviewed the patient's lab results. My interpretation of these results are in the MDM Rationale portion of this note. 07/24/23 18:00 07/24/23 18:00 Labs: Lab Results 07/24/23 07/24/23 Range/Units 18:00 19:00 WBC 9.7 (4.8-10.8) X10*3/uL RBC 4.38 (4.20-5.50) X10*6/uL Hgb 11.8 L D (12.0-16.0) g/dl Hct 36.2 L (37.0-47.0) % MCV 82.6 (80.0-98.0) fL MCH 26.9 L (27.0-33.0) pg MCHC 32.6 (31.0-35.0) g/dl RDW 13.4 (11.0-16.0) % Plt Count 339 (160-400) X10*3/uL MPV 8.5 L (9.4-12.3) fL Immature Gran % (Auto) 0.2 (0.0-0.4) % Neut % (Auto) 75.0 H (45-73) % Lymph % (Auto) 15.2 L (20-40) % Jones % (Auto) 7.7 (2-11) % Eos % (Auto) 1.6 (0-4) % Baso % (Auto) 0.3 (0-2) % Lymph # (Auto) 1.5 (1.2-4.9) X10*3/uL Jones # (Auto) 0.8 (0.1-1.2) X10*3/uL Eos # (Auto) 0.2 (0.0-0.4) X10*3/uL Baso # (Auto) 0.0 (0.0-0.2) X10*3/uL Abs Immat Gran (auto) 0.02 (0.00-0.03) X10*3/uL Absolute Neuts (auto) 7.3 (2.0-8.3) x10*3/uL Absolute Nucleated RBC 0.000 (0.0-0.012) X10*3/uL Nucleated RBC % (auto) 0.0 (0.0-0.2) /100WBC Sodium 136 (135-145) mmol/L Potassium 3.6 (3.3-5.1) mmol/L Chloride 105 (96-108) mmol/L Carbon Dioxide 25 (22-29) mmol/L Anion Gap 10 L (12-20) BUN 7 L (9-16) mg/dL Creatinine 0.72 (0.5-1.4) mg/dL Estim Creat Clear Calc 102.2 Estimated GFR > 60 Random Glucose 98 (60-115) mg/dL Lactic Acid 0.8 (0.5-2.0) mmol/L Calcium 9.2 (8.4-10.2) mg/dL Total Bilirubin 0.5 (0.0-1.0) mg/dL Direct Bilirubin 0.1 (0.0-0.5) mg/dL AST 17 (5-31) U/L ALT 14 (0-31) U/L Alkaline Phosphatase 71 (39-117) U/L Total Protein 7.6 (6.5-8.0) g/dL Albumin 4.3 (3.5-5.0) g/dL Beta HCG, Quant 7911 mIU/mL Urine Color Red A Urine Appearance Turbid Urine pH 8.0 (5.0-9.0) Ur Specific [place] 1.015 (1.005-1.025) Urine Protein 100 (2+) H (Neg-Trace) mg/dL Urine Glucose (UA) Negative (Negative) mg/dL Urine Ketones Negative (Negative) mg/dL Urine Blood Large (3+) H (Negative) Urine Nitrite Positive H (Negative) Ur Leukocyte Esterase Moderate (2+) H (Negative) Urine RBC >20 H (0-2) /HPF Urine WBC >50 H (0-5) /HPF Ur Squamous Epith Cells 3-5 (0-2) /HPF Urine Bacteria 4+ (None Seen) Hyaline Casts 0-2 (0-2) /LPF Urine Test POSITIVE H (NEGATIVE) Influenza Type A (PCR) NEGATIVE (Negative) Influenza Type B (PCR) NEGATIVE (Negative) RSV RNA Qual (PCR) NEGATIVE (Negative) SARS-CoV-2 RNA (RT-PCR) NEGATIVE (Negative) Blood Type O Positive Antibody Screen NEGATIVE Independent Interpretation I performed an independent interpretation of an: Ultrasound Interpretation: My interpretation is in agreement with the radiologist's impression of this imaging study. EXAMINATION: US OBSTETRICAL ULTRASOUND CLINICAL INFORMATION: Vaginal bleeding. . Question miscarriage. COMPARISON: None available. LMP: Early June. Gestational age by maternal dates is none. Estimated date of delivery by maternal dates is none. TECHNIQUE: Routine transabdominal imaging of pelvis is performed. FINDINGS: The uterus is midline measuring 6.3 cm in craniocaudad length, 4.7 cm in height and 5.7 seen in transverse dimension.. The cervix is closed measuring 2.8 cm. The endometrium is heterogeneous and thickened measuring 2 cm. No intrauterine gestational sac seen. There is echogenic debris seen within the endometrial canal likely blood clots. Right ovary measures 2.5 x 0.9 x 0.8 cm and appears unremarkable. Left ovary measures 2.6 x 1.7 x 2.3 cm with a corpus luteal cyst measuring 1.5 x 0.9 x 1.2 cm. In the left adnexa there is solid echogenic area inseparable from the left ovary in spite of external pressure. A question of ectopic is raised. It measures 1.8 x 0.9 x 1.4 cm. There is small amount of clear of mild fluid in the cul-de-sac in the left adnexa. US/US OB pelvic and transvaginal IMPRESSION: No intrauterine gestational sac or pole seen. There is a solid area abutting the left ovary question ectopic. There is a small amount of clear fluid in left adnexa and cul-de-sac. A small corpus luteal cyst is seen in left ovary. The endometrium is heterogeneous and thickened with echogenic material within, question clot. Dictated By: Cali Cooper MD Signed By: Electronically signed by Cali Cooper MD 07/24/233 Radiology Impression Discussion of test interpretation with radiology: I have reviewed the radiologist's reading. Critical Care Time Critical Care Time Critical Care Time: Yes Total Critical Care Time: 128 Attestation: I spent 128 minutes of Critical Care Time with this patient. This does not include time spent on separately reported billable procedures. Discharge Plan Discharge Clinical Impression: Vaginal bleeding, Incomplete Patient Disposition: Home, Self-Care Instructions: Menorrhagia (ED) Additional Instructions: Follow up with your primary care provider and the OBGYN. Return tomorrow (07/25/2023) for a repeat HCG. Return to the emergency department immediately if your symptoms worsen or if you develop any dizziness, shortness of breath, difficulty breathing, chest pain, blurry vision, loss of vision, nausea, vomiting, abdominal pain, fever, chills, back pain, or any other complaints. Prescriptions: No Action acetaminophen 325 mg Tablet 650 mg PO Q4H PRN (Reason: Pain) cefuroxime axetil 250 mg tablet 250 mg PO BID 5 Days Qty: 10 0RF nitrofurantoin monohyd/m-cryst [Macrobid] 100 mg capsule 100 mg PO BID Qty: 10 0RF Rx Instructions: must administer with a meal/food Referrals: [facility] [Primary Care Provider] - Herb Segal MD [Physician] - (Call to establish and follow up with an OBGYN. ) Stand Alone Forms: Work/School Release Interventions: ED Discharge Assessment Last Done: 07/24/23 23:33 Discharge Date/Time: 07/24/23 23:35 Print Language: Prydeinig
[2023-07-24 18:06] LABS: Basophils Percent Auto 0.3 % (0-2); Eosinophils Absolute Auto 0.2 X10*3/uL (0.0-0.4); Eosinophils Percent Auto 1.6 % (0-4); Hematocrit 36.2 % (37.0-47.0); Hemoglobin 11.8 g/dl (12.0-16.0); Imm Gran Abs Auto 0.02 X10*3/uL (0.00-0.03); Imm Gran Pct Auto 0.2 % (0.0-0.4); Lymphocytes Absolute Auto 1.5 X10*3/uL (1.2-4.9); Lymphocytes Percent Auto 15.2 % (20-40); MANUAL DIFF FLAG NO; Mean Corpuscular HGB Conc 32.6 g/dl (31.0-35.0); Mean Corpuscular Hemoglobin 26.9 pg (27.0-33.0); Mean Corpuscular Volume 82.6 fL (80.0-98.0); Mean Platelet Volume 8.5 fL (9.4-12.3); Monocytes Absolute Auto 0.8 X10*3/uL (0.1-1.2); Monocytes Percent Auto 7.7 % (2-11); Neutrophils Absolute Auto 7.3 x10*3/uL (2.0-8.3); Platelet Count 339 X10*3/uL (160-400); Red Blood Count 4.38 X10*6/uL (4.20-5.50); Red Cell Distribution Width 13.4 % (11.0-16.0); White Blood Count 9.7 X10*3/uL (4.8-10.8)
[2023-07-24 18:08] LABS: UPreg QC Valid YES; Urine Pregnancy POSITIVE (NEGATIVE)
[2023-07-24 18:24] LABS: Anion Gap 10 (12-20); Blood Urea Nitrogen 7 mg/dL (9-16); Calcium 9.2 mg/dL (8.4-10.2); Carbon Dioxide 25 mmol/L (22-29); Chloride 105 mmol/L (96-108); Creatinine Clr Calc Pharmacy 102.2; Estimated Glomerular Filt Rate > 60; Glucose Random 98 mg/dL (60-115); Potassium 3.6 mmol/L (3.3-5.1); Sodium 136 mmol/L (135-145)
[2023-07-24 18:26] LABS: HCG Quantitative 7911 mIU/mL
[2023-07-24 18:34] LABS: Appearance Urine Turbid; Bacteria Urine 4+ (None Seen); Color Urine Red; Glucose Urine UA Negative (Negative); Hyaline Casts Urine 0-2 /LPF (0-2); Leukocyte Esterase Urine Moderate (2+) (Negative); Nitrite Urine Positive (Negative); RBC Urine >20 /HPF (0-2); Specific Gravity - Urine 1.015 (1.005-1.025); UACC Culture Trigger YES; UMIC TRIGGER UACC YES; Urine Blood Large (3+) (Negative); Urine Ketones Negative (Negative); Urine Protein 100 (2+) mg/dL (Neg-Trace); WBC Urine >50 /HPF (0-5)
[2023-07-24 19:20] LABS: Lactic Acid 0.8 mmol/L (0.5-2.0)
[2023-07-24 19:46] LABS: Influenza A PCR NEGATIVE (Negative); Influenza B PCR NEGATIVE (Negative); Resp Syncy Virus RNA Qual PCR NEGATIVE (Negative); SARS COV2 PCR INHOUSE NEGATIVE (Negative)
--- NOTE | 2023-07-24 21:32 | PM.GYNCN ---
CHEMISTRY DEPARTMENT CHAIR - CN: HPI Data of Consult Consult date: 07/24/23 Primary Care Provider: [facility] Consult Narrative Narrative: I was consulted on Mikala Lu who is a 22 year old female who presented to the emergency department today with vaginal bleeding. LMP 06/11/23 making her by today at 7w of gestation . The patient states that she had 3 days light vaginal bleeding earlier this month but over the last few days she has begun heavy vaginal bleeding associated with passage of blood clots & tissues. No other associated symptoms HCG 7911 Blood type O positive cc:: CC: OB [facility] Past Medical History Medical History COVID-19 No known health problems Social History Social History Household Members: Significant Other Housing: Apartment Do you presently have visiting nurse or other home services: No Alcohol intake: current Alcohol intake frequency: holidays/special occasions only Patient Tobacco Use Status: Never used Tobacco Smoked in Last 30 Days: No Advance Directives: No Advance Directives Information Provided: No Meds Allergies Allergy/AdvReac Type Severity Reaction Status Date / Time SEAFOOD Allergy Unknown UNKNOWN Uncoded 09/29/22 10:35 Home Medications Medication Instructions Recorded Confirmed Last Taken Type acetaminophen 325 mg tablet 650 mg PO Q4H PRN Pain 02/21/22 02/21/22 Unknown History CHEMISTRY DEPARTMENT CHAIR Physical Exam Vitals Vital signs: Temp Pulse Resp BP Pulse Ox O2 Del Method 99.4 F 117 H 18 118/59 L 100 Room Air 07/24/23 17:28 07/24/23 17:28 07/24/23 17:28 07/24/23 17:28 07/24/23 17:28 07/24/23 17:28 BMI result Body Mass Index 24.0 Abdomen Auscultation/Inspection/Palpation: Normal bowel sounds, Soft, Non-distended and No tenderness Female Genitalia (Pelvic) Bladder/Urethra: Normal meatus Vulva: No lesions Cervix: Grossly normal Uterus: Normal size Adnexa/Parametria: Adnexal Tenderness: None, Adnexal Mass: None, Parametrial Tenderness: None and Parametrial Mass: None Additional Comments: Tissue protruding from the cervix pulled out and sent to path, no active bleeding CHEMISTRY DEPARTMENT CHAIR - Results Labs 07/24/23 18:00 07/24/23 18:00 Labs: Short CBC 07/24/23 Range/Units 18:00 WBC 9.7 (4.8-10.8) X10*3/uL Hgb 11.8 L D (12.0-16.0) g/dl Hct 36.2 L (37.0-47.0) % Plt Count 339 (160-400) X10*3/uL BMP 07/24/23 18:00 Sodium 136 Potassium 3.6 Chloride 105 Carbon Dioxide 25 BUN 7 L Creatinine 0.72 Calcium 9.2 Urine 07/24/23 Range/Units 18:00 Urine Color Red A Urine Appearance Turbid Urine pH 8.0 (5.0-9.0) Ur Specific [place] 1.015 (1.005-1.025) Urine Protein 100 (2+) H (Neg-Trace) mg/dL Urine Glucose (UA) Negative (Negative) mg/dL Urine Test POSITIVE H (NEGATIVE) Antibody Screen Antibody Screen NEGATIVE 07/24/23 19:00 Imaging US - abdomen: Radiologist's impression: ITS Impressions Pelvic/Transvag US 07/24/23 20:03 IMPRESSION: No intrauterine gestational sac or pole seen. There is a solid area abutting the left ovary question ectopic. There is a small amount of clear fluid in left adnexa and cul-de-sac. A small corpus luteal cyst is seen in left ovary. The endometrium is heterogeneous and thickened with echogenic material within, question clot. Assessment and Plan (1) Early stage of : Status: Acute GC/CT, BV panel and Trich collected. Tissues protruding from the cervix sent to path. Discussed with the patient the findings on pelvic exam, with tissue protruding from the endocervix and ultrasound showing no IUP with hCG level above the discriminatory level, in addition to the presence in the left adnexa a solid echogenic area inseparable from the left ovary in spite of external pressure questionable of ectopic measuring 1.8 x 0.9 x 1.4 cm with no evidence of intrauterine , with the suspicion of ectopic vs SAB. Options of treatment dw pt includes but not limited to: Option 1 , expectant management with repeat HCG in 24 hours in the ER with reevaluation waiting for the clinical picture to become a little more clearer btw the diagnosis of ectopic versus SAB with the risk of delaying diagnosis of an ectopic , intra-abdominal rupture and bleeding and risk of morbidity, mortality and benefit of preventing methotrexate treatment and its possible side effects. Option 2, to start with Suction D and C to rule out intrauterine followed by HCG levels and determined SAB versus ectopic, the risk of this approach being termination of a live intrauterine that is early undetected by ultrasound, the risk being delayed diagnosis of ectopic and/or potential consequences. Option 3 is methotrexate treatment; All the pros and cons risks and benefits of this approach were discussed with the patient including but not limited to, failure rate of MTX ~15%, possible exposure of methotrexate side effects. All pros/cons, risk and benefits of each option were d/w pt and the patient decided to proceed with expectant management. Signs and symptoms of incomplete and ruptured ectopic were discussed with the patient, she is to call or go to the ER if vaginal bleeding or abdominal pain occurs, otherwise the patient were given instructions to follow up in the ER tomorrow for a repeat HCG and reevaluation; in addition to a follow-up office appointment in 2 days . All questions were answered pt verbalized understanding.
--- NOTE | 2023-07-24 21:36 | PC.NURSE ---
Pt is NPO per Rissa. Plan of care ongoing.
[2023-07-24 22:05] LABS: Alanine Aminotransferase 14 U/L (0-31); Albumin Level 4.3 g/dL (3.5-5.0); Alkaline Phosphatase 71 U/L (39-117); Aspartate Amino Transferase 17 U/L (5-31); Bilirubin Direct 0.1 mg/dL (0.0-0.5); Bilirubin Total 0.5 mg/dL (0.0-1.0); Total Protein 7.6 g/dL (6.5-8.0)
[2023-07-24 23:33] VITALS: BP 120/68; PULSE 100; RESP 14; TEMP 37.2; O2SAT 100
[2023-07-25 08:43] LABS: BV Int Neg Control Negative (Negative); BV Int Pos Control Positive (Positive)
[2023-07-25 09:16] LABS: CT PCR NOT DETECTED (Not Detect.); NG PCR NOT DETECTED (Not Detect.)
== END 2023-07-24 23:35 | disposition home or self-care (01) ==
PROVIDERS: Obstetrics & Gynecology; Physician Assistant Medical; Emergency Provider Emergency Medicine Emergency Medical Services
DX: O03.4 Incomplete spontaneous abortion without complication (principal); Z03.818 Encounter for observation for suspected exposure to other biological agents ruled out
CPT/HCPCS: 0241U; 0353U; 36415; 76801; 76817; 80048; 80076; 81001; 81025; 83605; 84702; 85025; 86850; 86900; 86901; 87040; 87086; 87088; 87186; 87480; 87510; 87660; 88305; 88342; 88377; 99284

== ENCOUNTER → 2023-07-24 18:27 | Outpatient (BNV) | payer OTHER, SELFPAY | PROVIDERS: Emergency Provider Emergency Medicine Emergency Medical Services; Visit Provider Obstetrics & Gynecology | DX: Z34.90 Encounter for supervision of normal pregnancy, unspecified, unspecified trimester (principal) | CPT/HCPCS: 99283 ==

== ENCOUNTER 2023-07-25 12:40 | Emergency (ER) | payer OTHER, SELFPAY ==
--- NOTE | 2023-07-25 12:52 | ED_ITS ---
HPI - General Adult General Chief complaint: General Medical Stated complaint: Returning per Dr Segal Time Seen by Provider: 07/25/23 13:53 Source: patient Mode of arrival: ambulatory Limitations: no limitations History of Present Illness HPI narrative: Patient is a 22-year-old female, LMP 06/11/2023 earlier this month 3 days of light vaginal bleeding, over the past few days began having heavy vaginal bleeding and passage of clots and tissues which prompted her evaluation with exploration driller, at this time she states that the bleeding continues is having lower abdominal pain presents to the ED for repeat hCG per Dr. Segal Related Data Home Medications Medication Instructions Recorded Confirmed acetaminophen 325 mg tablet 650 mg PO Q4H PRN Pain 02/21/22 02/21/22 Previous Rx's Medication Instructions Recorded cefuroxime axetil 250 mg tablet 250 mg PO BID 5 days #10 tabs 02/22/22 nitrofurantoin 100 mg PO BID #10 caps 09/15/22 monohydrate/macrocrystals 100 mg capsule (Macrobid) Allergies Allergy/AdvReac Type Severity Reaction Status Date / Time SEAFOOD Allergy Unknown UNKNOWN Uncoded 09/29/22 10:35 Review of Systems 2 Review of Systems: Yes all other systems are reviewed and are negative PMFSH Past Medical History Attestation statement: The following information was validated with the patient. Source: old records reviewed Medical History COVID-19 No known health problems Social History Social History Household Members: Significant Other Housing: Apartment Do you presently have visiting nurse or other home services: No Alcohol intake: current Alcohol intake frequency: holidays/special occasions only Patient Tobacco Use Status: Never used Tobacco Advance Directives: No Advance Directives Information Provided: No Physical Exam ED Vital Signs: Vital Signs - 24 hr 07/25/23 12:56 Temperature 97.7 F Pulse Rate 86 Respiratory Rate 18 Blood Pressure 117/65 Pulse Oximetry 100 Oxygen Delivery Method Room Air BMI result Body Mass Index 22.3 Appearance: Alert.?Oriented to person, place and time. No acute distress.?Normal affect. Neck: Normal inspection.? Neck supple.?? CVS: Heart sounds normal. Normal heart rate and rhythm.? Pulses normal.?? Respiratory: No respiratory distress.? Lung sounds clear to auscultation bilaterally?? Abdomen: Soft diffuse lower abdominal tenderness upon palpation. Normoactive bowel sounds. Skin: Skin warm and dry.? Normal skin color.? Extremities: No lower extremity edema.? Neuro: Moves all extremities spontaneously. Sensation intact bilaterally. Ambulates with normal steady gait. Medical Decision Making Medical Decision Making [facility] Narrative: Patient is a 22-year-old female who presents emergency department for repeat hCG as per exploration driller, in the setting of vaginal bleeding; had Evaluation with OBGYN, Dr. Segal yesterday ultrasound concerning for possible ectopic versus SAB; she was presented with options including repeat hCG in 24 hours and re- evaluation, suction D and C with risk of determination of live intrauterine not yet detected by ultrasound, or methotrexate. Patient elected to have repeat hCG and re-evaluation. She reports no acute changes in her symptoms. Differential Diagnosis Differential Diagnoses: The differential diagnosis associated with the presentation includes (See narrative above) Admission/Observation Consideration of admission/observation: Escalation of care including admission/observation considered (See narrative above) Consult Healthcare Provider Management of the patient was discussed with: Air Traffic Coordinator (Dr. Segal; exploration driller) Consulted with Dr. Segal, advised on findings. Given downtrending hCG most likely to be consistent with spontaneous , however given ultrasound findings discussed strict return precautions for potential ectopic. She will follow-up outpatient tomorrow with Dr. Segal's office, have repeat hCG and re- evaluation. Lab Data [facility] Lab Attestation statement: I reviewed the patient's lab results. Stable normocytic anemia. HCG downtrending at 4104 compared to 7911 yesterday. 07/25/23 13:20 Labs: Lab Results 07/25/23 Range/Units 13:20 WBC 7.1 (4.8-10.8) X10*3/uL RBC 4.39 (4.20-5.50) X10*6/uL Hgb 11.9 L (12.0-16.0) g/dl Hct 37.1 (37.0-47.0) % MCV 84.5 (80.0-98.0) fL MCH 27.1 (27.0-33.0) pg MCHC 32.1 (31.0-35.0) g/dl RDW 13.4 (11.0-16.0) % Plt Count 359 (160-400) X10*3/uL MPV 8.8 L (9.4-12.3) fL Immature Gran % (Auto) 0.4 (0.0-0.4) % Neut % (Auto) 71.3 (45-73) % Lymph % (Auto) 19.5 L (20-40) % [place] % (Auto) 7.0 (2-11) % Eos % (Auto) 1.5 (0-4) % Baso % (Auto) 0.3 (0-2) % Lymph # (Auto) 1.4 (1.2-4.9) X10*3/uL [place] # (Auto) 0.5 (0.1-1.2) X10*3/uL Eos # (Auto) 0.1 (0.0-0.4) X10*3/uL Baso # (Auto) 0.0 (0.0-0.2) X10*3/uL Abs Immat Gran (auto) 0.03 (0.00-0.03) X10*3/uL Absolute Neuts (auto) 5.1 (2.0-8.3) x10*3/uL Absolute Nucleated RBC 0.000 (0.0-0.012) X10*3/uL Nucleated RBC % (auto) 0.0 (0.0-0.2) /100WBC Beta HCG, Quant 4104 mIU/mL Discharge Plan Discharge Clinical Impression: Early stage of Patient Disposition: Home, Self-Care Instructions: Ectopic (DC), Threatened Miscarriage (ED) Additional Instructions: The blood marker for , hCG, is down trending. It is most likely that this is a miscarriage. However based on the ultrasound there is still concern for possible ectopic . Return back to emergency department with any new or worsening symptoms or concerns such as increased vaginal bleeding, severe worsening pain, pain that is only on the left side of the abdomen. Contact Dr. Segal's office tomorrow to arrange for another hCG level and follow-up in his office. Prescriptions: No Action acetaminophen 325 mg Tablet 650 mg PO Q4H PRN (Reason: Pain) cefuroxime axetil 250 mg tablet 250 mg PO BID 5 Days Qty: 10 0RF nitrofurantoin monohyd/m-cryst [Macrobid] 100 mg capsule 100 mg PO BID Qty: 10 0RF Rx Instructions: must administer with a meal/food Referrals: Herb Segal MD [Physician] -
[2023-07-25 12:56] VITALS: BP 117/65; PULSE 86; RESP 18; TEMP 36.5; O2SAT 100; BMI 22.3
[2023-07-25 13:38] LABS: MANUAL DIFF FLAG NO
[2023-07-25 13:47] LABS: Basophils Percent Auto 0.3 % (0-2); Eosinophils Absolute Auto 0.1 X10*3/uL (0.0-0.4); Eosinophils Percent Auto 1.5 % (0-4); Hematocrit 37.1 % (37.0-47.0); Hemoglobin 11.9 g/dl (12.0-16.0); Imm Gran Abs Auto 0.03 X10*3/uL (0.00-0.03); Imm Gran Pct Auto 0.4 % (0.0-0.4); Lymphocytes Absolute Auto 1.4 X10*3/uL (1.2-4.9); Lymphocytes Percent Auto 19.5 % (20-40); Mean Corpuscular HGB Conc 32.1 g/dl (31.0-35.0); Mean Corpuscular Hemoglobin 27.1 pg (27.0-33.0); Mean Corpuscular Volume 84.5 fL (80.0-98.0); Mean Platelet Volume 8.8 fL (9.4-12.3); Monocytes Absolute Auto 0.5 X10*3/uL (0.1-1.2); Neutrophils Absolute Auto 5.1 x10*3/uL (2.0-8.3); Neutrophils Percent Auto 71.3 % (45-73); Platelet Count 359 X10*3/uL (160-400); Red Blood Count 4.39 X10*6/uL (4.20-5.50); Red Cell Distribution Width 13.4 % (11.0-16.0); White Blood Count 7.1 X10*3/uL (4.8-10.8)
[2023-07-25 14:03] LABS: HCG Quantitative 4104 mIU/mL
[2023-07-25 14:28] VITALS: BP 117/65; PULSE 86; RESP 18; TEMP 36.5; O2SAT 100
--- NOTE | 2023-07-25 14:55 | PM.GYNCN ---
SPORT PSYCHOLOGIST - CN: HPI Data of Consult Consult date: 07/25/23 Primary Care Provider: [facility] Consult Narrative Narrative: I was consulted on Mikala Lu who is a 22 year old female presenting for repeat hCG follow-up regarding her last visit yesterday emergency room. Yesterday hCG was 7911, the patient is doing well with minimal pelvic cramping, no pelvic pain and minimal vaginal bleeding, no passage of blood clots or heavy bleeding. Repeat hCG today was down to 4104 cc:: CC: OB [facility] Past Medical History Medical History COVID-19 No known health problems Social History Social History Household Members: Significant Other Housing: Apartment Do you presently have visiting nurse or other home services: No Alcohol intake: current Alcohol intake frequency: holidays/special occasions only Patient Tobacco Use Status: Never used Tobacco Advance Directives: No Advance Directives Information Provided: No Meds Allergies Allergy/AdvReac Type Severity Reaction Status Date / Time SEAFOOD Allergy Unknown UNKNOWN Uncoded 09/29/22 10:35 Home Medications Medication Instructions Recorded Confirmed Last Taken Type acetaminophen 325 mg tablet 650 mg PO Q4H PRN Pain 02/21/22 02/21/22 Unknown History SPORT PSYCHOLOGIST Physical Exam Vitals Vital signs: Temp Pulse Resp BP Pulse Ox O2 Del Method 97.7 F 86 18 117/65 100 Room Air 07/25/23 14:28 07/25/23 14:28 07/25/23 14:28 07/25/23 14:28 07/25/23 14:28 07/25/23 14:28 BMI result Body Mass Index 22.3 Additional Comments: Physical exam reported by JOSÉ ANTONIO Pennington as the following: Stable vital signs and afebrile, Abdomen soft nontender SPORT PSYCHOLOGIST - Results Labs 07/25/23 13:20 Labs: Short CBC 07/25/23 Range/Units 13:20 WBC 7.1 (4.8-10.8) X10*3/uL Hgb 11.9 L (12.0-16.0) g/dl Hct 37.1 (37.0-47.0) % Plt Count 359 (160-400) X10*3/uL Assessment and Plan (1) Early stage of : Status: Acute Discussed with JOSÉ ANTONIO Pennington the following: The decreasing levels of HCG, differential diagnosis includes either early SAB vs. early ectopic versus with an unlikely possibility of normal intrauterine gestation and that the decreasing HCG values suggest a failing and may be used to monitor spontaneous resolution, but this decrease should not be considered diagnostic. A patient with decreasing HCG values could still have a possible ectopic and should be monitored until non levels are reached because rupture of an ectopic can occur while levels are decreasing or are very low. Instructions to be given to the patient to the importance of compliance and timely HCG follow-up in 24 hours in the outpatient office for an early and accurate diagnosis, and to call or go to the emergency room if pelvic pain pain or vaginal bleeding occurs, in addition to discuss warning signs for ectopic and or incomplete . Recommend repeat hCG tomorrow and to follow-up tomorrow in the outpatient office for further management. All questions answered the patient verbalized understanding and agreed with the plan I spent a total of 20 minutes reviewing the chart, communicating to the emergency room provider and documenting the medical record
== END 2023-07-25 14:30 | disposition home or self-care (01) ==
PROVIDERS: Nurse Practitioner Family; Emergency Provider Student in an Organized Health Care Education/Training Program
DX: Z34.90 Encounter for supervision of normal pregnancy, unspecified, unspecified trimester (principal)
CPT/HCPCS: 36415; 84702; 85025; 99282; 99283

== ENCOUNTER → 2023-07-25 13:23 | Outpatient (BNV) | payer OTHER, SELFPAY | PROVIDERS: Emergency Provider Student in an Organized Health Care Education/Training Program; Visit Provider Obstetrics & Gynecology | DX: Z34.90 Encounter for supervision of normal pregnancy, unspecified, unspecified trimester (principal) | CPT/HCPCS: 99283 ==

== ENCOUNTER 2023-07-26 10:48 | Outpatient (REF) | payer OTHER, SELFPAY ==
--- NOTE | ~2023-07-26 | US_ITS ---
EXAMINATION: US OBSTETRICAL ULTRASOUND CLINICAL INFORMATION: Declining beta hCG levels. Complete or spontaneous . Recent vaginal bleeding. COMPARISON: Pelvic ultrasound from 07/24/2023. TECHNIQUE: Sonographic imaging of the pelvis is performed using transabdominal and transvaginal transducers. FINDINGS: The anteflexed, anteverted uterus has normal contour and normal myometrial echotexture. No evidence of uterine leiomyoma. The endometrium has an AP thickness of 0.7 cm at the fundus. However, within the uterine body, the echogenic, mildly heterogeneous endometrium measures up to 1.9 cm AP, unchanged compared to 07/24/2023. No evidence of a gestational sac or fluid collection within the endometrial cavity. The ovaries are sonographically normal. The right ovary is 2.2 x 1 x 1.3 cm and left ovary 4.5 x 2.3 x 2.3 cm. There is a 2 x 1.6 x 1.8 cm corpus luteum of the left ovary. No evidence of adnexal mass. Small, physiologic amount free fluid is present within the posterior cul-de-sac. US/US OB pelvic and transvaginal IMPRESSION: * No sonographic evidence of either ectopic or intrauterine . * The persistent thickening of the endometrium is nonspecific and could be seen in early stages after failure or in the setting of retained products.
[2023-07-26 11:37] LABS: HCG Quantitative 2380 mIU/mL
== END 2023-07-26 10:49 | disposition home or self-care (01) ==
LOC: HO.LAB 10:48
PROVIDERS: Visit Provider Obstetrics & Gynecology
DX: Z34.90 Encounter for supervision of normal pregnancy, unspecified, unspecified trimester (principal)
CPT/HCPCS: 36415; 76801; 76817; 84702

== ENCOUNTER 2023-07-26 11:24 | Outpatient (AMB) | payer OTHER, SELFPAY ==
[2023-07-26 11:56] VITALS: BP 100/64
--- NOTE | 2023-07-26 11:56 | A.OFFVIS_ITS ---
Intake Vital Signs 07/26/23 11:56 Height 5 ft 5.28 in BP 100/64 Intake Visit Reasons: HCG follow up Technical Photographer: Technical Photographer Present Allergies SEAFOOD Allergy (Unknown, Uncoded 07/26/23 11:56) UNKNOWN HPI HPI Comments History of Present Illness Details Presenting for follow-up from emergency room. The patient went to the emergency room 2 days ago with vaginal bleeding and pelvic cramping. HCG was 7911, blood type positive, pelvic ultrasound showed the following: The uterus is midline measuring 6.3 cm in craniocaudad length, 4.7 cm in height and 5.7 seen in transverse dimension.. The cervix is closed measuring 2.8 cm. The endometrium is heterogeneous and thickened measuring 2 cm. No intrauterine gestational sac seen. There is echogenic debris seen within the endometrial canal likely blood clots. Right ovary measures 2.5 x 0.9 x 0.8 cm and appears unremarkable. Left ovary measures 2.6 x 1.7 x 2.3 cm with a corpus luteal cyst measuring 1.5 x 0.9 x 1.2 cm. In the left adnexa there is solid echogenic area inseparable from the left ovary in spite of external pressure. A question of ectopic is raised. It measures 1.8 x 0.9 x 1.4 cm. There is small amount of clear of mild fluid in the cul-de-sac in the left adnexa. The patient was given different options of management including expectant management, suction D&C or methotrexate treatment, the patient decided to proceed with expectant management ; so hCG was repeated a day afterwards , her bleeding has slowed down markedly and repeat hCG when down to 4104; The patient since then has been doing very well with minimal bleeding and no pelvic cramping. GC/CT, BV panel Trichomonas were done in the emergency room they were all negative Repeated today was further down to 2380. Repeat ultrasound done today showed the following: PFSH Medical History COVID-19 No known health problems Social History Household Members: Significant Other Housing: Apartment Do you presently have visiting nurse or other home services: No Alcohol intake: current Alcohol intake frequency: holidays/special occasions only Patient Tobacco Use Status: Never used Tobacco Review of Systems Const All systems reviewed & are unremarkable except as noted in HPI and below Physical Exam Vital Signs: Last Vital Signs BP 100/64 07/26/23 11:56 General: Yes no CVA tenderness External Female Exam: normal external appearance and normal appearance of the urethra Speculum Exam - Vagina: normal appearance of the vagina, normal palpation, no lesions and no masses Speculum Exam - Cervix: normal appearance of the cervix, normal palpation, no lesions, no masses, nontender and Other cervical findings present (Tissue at the cervical os removed) Bimanual exam- vagina & uterus: normal bimanual exam, normal palpation, uterine size normal, normal palpation, uterine shape normal, No Cervical tenderness present and non-tender Bimanual Exam- Adnexa, other: normal adnexae Back/Spine/Pelvis Back: no CVA tenderness Assessment & Plan Assessment & Plan (1) SAB (spontaneous ): Code(s): O03.9 - Complete or unspecified spontaneous without complication Plan: Tissues at the cervical os were removed and sent to pathology Discussed with the patient the result of the ultrasound no evidence of ectopic , thickened endometrial possible post versus retained products of conception & the options of the treatment discussed with the patient including expectant management, medical treatment , or suction D&C, all pros, cons, risks and benefits were discussed with the patient and the patient the decided to go ahead with expectant management. Signs and symptoms of ectopic , incomplete were discussed with the patient, she is to call or come back to emergency room in case of heavy bleeding/ pelvic cramping or pelvic pain. Will repeat hCG in 1 week. Instructions given the patient to schedule a follow- up appointment 2 days. All questions answered, the patient verbalized understanding This note was generated with a voice recognition program. Some errors may have been overlooked during the review of this note. Sometimes these errors may affect the content or meaning of a given sentence. Orders: Orders Surgical Today O03.9 - Complete or unspecified spontaneous without complication HCG Quantitative 1 Week O03.9 - Complete or unspecified spontaneous without complication Coding Level of Care Code Est Pt Level 3 (14486) Diagnoses SAB (spontaneous ) O03.9
== END 2023-07-26 15:19 | disposition home or self-care (01) ==
PROVIDERS: Visit Provider Obstetrics & Gynecology
DX: O03.9 Complete or unspecified spontaneous abortion without complication (principal)
CPT/HCPCS: 99213

== ENCOUNTER 2023-07-26 12:26 | Outpatient (REF) | payer OTHER, SELFPAY | END 2023-07-26 12:27 | disposition home or self-care (01) | LOC: HO.LNP 12:26 | PROVIDERS: Visit Provider Obstetrics & Gynecology | DX: O03.9 Complete or unspecified spontaneous abortion without complication (principal) | CPT/HCPCS: 88305 ==

== ENCOUNTER 2023-08-02 09:52 | Outpatient (REF) | payer OTHER, SELFPAY ==
[2023-08-02 11:11] LABS: HCG Quantitative 139 mIU/mL
== END 2023-08-02 09:53 | disposition home or self-care (01) ==
LOC: HO.LAB 09:52
PROVIDERS: Visit Provider Obstetrics & Gynecology
DX: O03.9 Complete or unspecified spontaneous abortion without complication (principal)
CPT/HCPCS: 36415; 84702

== ENCOUNTER 2023-08-02 10:12 | Outpatient (AMB) | payer OTHER, SELFPAY ==
[2023-08-02 11:14] VITALS: BMI 22.3
--- NOTE | 2023-08-02 11:14 | MHC.OFFVIS ---
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 HCG dropped to 131 from 2380 on 07/25. The patient is doing well with no complaints no vaginal bleeding, pelvic cramping or any other concerns. PFSH Medical History COVID-19 No known health problems Social History Household Members: Significant Other Housing: Apartment Do you presently have visiting nurse or other home services: No Alcohol intake: current Alcohol intake frequency: holidays/special occasions only Patient Tobacco Use Status: Never used Tobacco Female Reproductive History Menstrual control method: none Review of Systems Const All systems reviewed & are unremarkable except as noted in HPI and below Reports as per HPI and Reports no additional complaints GI Reports no additional complaints Reports no additional complaints Physical Exam Vital Signs: BMI result Body Mass Index 22.3 Assessment & Plan Assessment & Plan (1) SAB (spontaneous ): Code(s): O03.9 - Complete or unspecified spontaneous without complication Plan: Discussed with the patient the results the hCG dropped to 139, the patient was reassured. SAB/ectopic/incomplete warnings given to patient, she is to call or come back to emergency room in case of heavy vaginal bleeding pelvic pain, temperature above 100.4 or any other concerns. Will repeat hCG in 2 weeks, instructions given the patient to schedule a follow-up appointment within 2 weeks. All questions answered, the patient verbalized understanding (2) Family planning: Code(s): Z30.09 - Encounter for other general counseling and advice on contraception Plan: Discussed with the patient the different options of control including control pills/Nuvaring, DMPA, IUD (Mirena, Paraguard), sterilization. All the pros, cons, risks and benefits of each were discussed with the patient. The patient decided to go ahead Nexplanon, so a more detailed discussion re: Nexplanon including mechanism of action, benefits, risks Instructions were given to the patient. Nexplanon insurance request form signed by the patient and submitted the patient has insurance, instructions given the patient to schedule Nexplanon insertion appointment yulissa meanwhile use a backup method for control to prevent . All questions answered, the patient verbalized understanding Orders: Orders AMB HCG Urine Test 2 Weeks O03.9 - Complete or unspecified spontaneous without complication Coding Level of Care Code Est Pt Level 3 (56698) Diagnoses SAB (spontaneous ) O03.9 Family planning Z30.09
== END 2023-08-02 11:22 | disposition home or self-care (01) ==
LOC: HO.HWS 10:12
PROVIDERS: Visit Provider Obstetrics & Gynecology
DX: O03.9 Complete or unspecified spontaneous abortion without complication (principal); Z30.09 Encounter for other general counseling and advice on contraception
CPT/HCPCS: 99213

== ENCOUNTER 2023-08-16 10:48 | Outpatient (REF) | payer OTHER, SELFPAY ==
[2023-08-16 11:32] LABS: HCG Quantitative 5 mIU/mL
== END 2023-08-16 10:49 | disposition home or self-care (01) ==
LOC: HO.LAB 10:48
PROVIDERS: Visit Provider Obstetrics & Gynecology
DX: O03.9 Complete or unspecified spontaneous abortion without complication (principal)
CPT/HCPCS: 36415; 84702

== ENCOUNTER 2023-08-16 11:15 | Outpatient (AMB) | payer OTHER, SELFPAY ==
--- NOTE | 2023-08-16 11:40 | MHC.OFFVIS ---
Intake Visit Reasons: 2 week HCG follow up Allergies SEAFOOD Allergy (Unknown, Uncoded 08/02/23 11:14) UNKNOWN HPI Comments Details: Presenting for hCG follow-up after SAB. HCG dropped to 5 from 131 on 08/01. The patient is doing well with no complaints no vaginal bleeding, pelvic cramping or any other concerns. [facility] Medical History COVID-19 No known health problems Social History Household Members: Significant Other Housing: Apartment Do you presently have visiting nurse or other home services: No Alcohol intake: current Alcohol intake frequency: holidays/special occasions only Patient Tobacco Use Status: Never used Tobacco Review of Systems Const All systems reviewed & are unremarkable except as noted in HPI and below Reports as per HPI and Reports no additional complaints GI Reports no additional complaints Reports no additional complaints Assessment & Plan Assessment & Plan (1) SAB (spontaneous ): Code(s): O03.9 - Complete or unspecified spontaneous without complication Category: Medical Plan: Discussed with the patient the results hCG dropped to 5 will repeat 1 more hCG level in 2 weeks, instructions given the patient to use a backup method for control waiting for Nexplanon insertion. Instructions given the patient to schedule a follow-up hCG up in 2 weeks and to call day 1 of her next cycle for Nexplanon insertion. All questions answered, the patient verbalized understanding Orders: Orders HCG Quantitative Today O03.9 - Complete or unspecified spontaneous without complication HCG Quantitative 2 Weeks O03.9 - Complete or unspecified spontaneous without complication
== END 2023-08-16 11:50 | disposition home or self-care (01) ==
LOC: HO.HWS 11:15
PROVIDERS: Visit Provider Obstetrics & Gynecology
DX: O03.9 Complete or unspecified spontaneous abortion without complication (principal)
CPT/HCPCS: 99213